=== PATIENT | female | born 1970 | race Hispanic/Latino ===

== ENCOUNTER 2019-10-01 02:52 | Emergency (ER) | payer OTHER ==
[2019-10-01] MEDS ORDERED: MAG HYDROX/AL HYDROX/SIMETH ES 30 ML SUSP UDCUP ONE (03:45)
[2019-10-01] MEDS ORDERED: LIDOCAINE HCL 2% VISCOUS 15 ML UDCUP ONE (03:45)
[2019-10-01] MEDS ORDERED: KETOROLAC TROMETHAMINE 30MG/ML ONE ×2 (03:45→03:46)
[2019-10-01] MEDS ORDERED: IPRATROPIUM/ALBUTEROL SULFATE 3 ML SOLUTION IH ONE (03:53)
[2019-10-01] MEDS ORDERED: AZITHROMYCIN 250 MG TABLET PO ONE (04:19)
[2019-10-01] MEDS ORDERED: DOXYCYCLINE HYCLATE 100 MG TABLET PO ONE (04:34)
== END 2019-10-01 04:58 | disposition home or self-care (01) ==
LOC: EDH 02:52
DX: J20.9 Acute bronchitis, unspecified (principal); R07.89 Other chest pain; M79.10 Myalgia, unspecified site; E11.9 Type 2 diabetes mellitus without complications; E78.5 Hyperlipidemia, unspecified; I10 Essential (primary) hypertension; Z90.49 Acquired absence of other specified parts of digestive tract; Z90.710 Acquired absence of both cervix and uterus; Z88.0 Allergy status to penicillin; Z88.2 Allergy status to sulfonamides; Z88.1 Allergy status to other antibiotic agents
CPT/HCPCS: 71046; 87804 ×2; 94640; 96372; 99284; J1885 ×2

== ENCOUNTER 2025-07-25 15:36 | Inpatient (IN) | payer BC ==
[~2025-07-25] VITALS: Ht 160 cm; Wt 78.3 kg
[~2025-07-25 15:36] MED LIST: FOLI0.8T22 PO; OMEP-420 PO
[2025-07-25 17:12] LABS: IMMATURE GRANULOCYTE ABSOLUTE 0.06 K/uL (0-1); NUCLEATED RED BLOOD CELLS 0.0 % (0.0-0.19); PLATELET COUNT (AUTO) 563 K/uL (130-400); RED BLOOD CELL COUNT(AUTO) 3.60 MIL/uL (4.00-5.50); RED CELL DISTRIBUTION WIDTH 18.6 % (11.0-15.5); WHITE BLOOD COUNT (AUTO) 12.6 K/uL (4.8-10.8)
--- NOTE | 2025-07-25 17:33 | EKG ---
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
[2025-07-25 17:53] LABS: CREATININE 5.6 mg/dL (0.5-1.0); GLOMERULAR FILTR. RATE CALC 8.0 mL/min (>90); GLUCOSE,RANDOM 228.0 mg/dL (70-105); SODIUM SERUM 132.0 mmol/L (136-145); UREA NITROGEN, BLOOD 38.0 mg/dL (7-18)
--- NOTE | 2025-07-25 17:55 | HMCIMG ---
STUDY CT chest without intravenous contrast. HISTORY Rule out abscess. TECHNIQUE Axial CT images of the chest were obtained without intravenous contrast. COMPARISON Chest radiograph dated 01/14/2025. FINDINGS LUNGS Both lungs demonstrate heterogeneous attenuation with a mosaic perfusion pattern. There is associated compressive atelectasis adjacent to a loculated left pleural collection. No discrete pulmonary mass is identified. No yifan cavitary lesion is seen. PLEURAL SPACES A loculated left pleural empyema is present, tracking along the left hemithorax with a maximal thickness of approximately 2.7 cm, exerting mass effect on the adjacent lung with subpleural scarring and compressive atelectasis. No right-sided pleural effusion or pneumothorax is identified. HEART AND GREAT VESSELS Marked cardiomegaly is present. The main pulmonary artery is enlarged, measuring approximately 3.2 cm in diameter, compatible with pulmonary arterial hypertension in the appropriate clinical context. No sizable pericardial effusion is identified on this noncontrast examination. MEDIASTINUM AND LYMPH NODES No pathologically enlarged mediastinal, hilar, or axillary lymph nodes are identified by size criteria. Mediastinal fat planes are preserved. CHEST WALL AND POSTSURGICAL CHANGES There is failure of sternal fixation with rupture of sternal sutures and wide diastasis of the sternal halves. A large intersternal fluid collection occupies the gap between the sternal margins, measuring approximately 4.2 4.3 12.3 cm, compatible with a postoperative intersternal collection, with superinfection not excluded on imaging alone. Omental flap transposition from the epigastrium into the sternal defect is visualized, consistent with prior surgical reconstruction. No definite gas locules are seen within the collection on this noncontrast study. UPPER ABDOMEN The visualized liver is enlarged, measuring approximately 18 cm in craniocaudal extent, compatible with hepatomegaly. Diffuse low attenuation of the hepatic parenchyma is in keeping with hepatic steatosis. The remaining visualized upper abdominal structures are unremarkable on this chest CT technique. BONES Apart from the described sternal dehiscence, no acute displaced rib fracture or aggressive osseous lesion is identified. IMPRESSION * Loculated left pleural empyema measuring up to approximately 2.7 cm in thickness with associated subpleural scarring and compressive atelectasis of adjacent lung parenchyma. * Marked cardiomegaly with enlarged main pulmonary artery measuring 3.2 cm, compatible with pulmonary arterial hypertension in the appropriate clinical setting. * Postoperative sternotomy with failure of sternal fixation and wide diastasis of the sternal halves, with a large intersternal fluid collection measuring approximately 4.2 4.3 12.3 cm occupying the sternal gap; omental flap transposition into the defect is noted, in keeping with prior reconstructive surgery. Imaging appearance is concerning for postoperative intersternal collection; superimposed infection cannot be excluded on this noncontrast study. * Hepatomegaly with diffuse hepatic steatosis in the visualized upper abdomen. /[place]
[2025-07-25] MEDS: VANCOMYCIN 1G/250ML KIT 250 ML IV ONE (18:00)
--- NOTE | 2025-07-25 18:52 | NUR ---
PT HAS A LEFT UPPER ARM FISTULA DIALYSIS M-[id number]
--- NOTE | 2025-07-25 19:50 | HP ---
[facility] Date of Service: Jul 25, 2025 Time of Service: 19:48 PCP: Tk Castillo HISTORY OF PRESENT ILLNESS: This is a 55-year-old Kyrgyz speaking female with past medical history of diabetes type 2, hypertension, hyperlipidemia, coronary artery disease with CABG x2 and end stage renal disease on hemodialysis who presents to the ED for complaints of swelling and tenderness on chest incision site started yesterday.Patient reports she had a CABG x2 on 01/2025 at [facility] [place] and developed complications she said for which she underwent 5 subsequent surgeries post CABG at [facility].Patient reports throbbing pain on the incisional site when coughing which started yesterday and getting worse today so daughter decided to bring her to this facility for evaluation. Seen and examined patient in the ER awake,alert and coherent,appears comfortable.Patient denies palpitation,shortness of breath, fever,chills ,nausea and vomiting.Lates V/S T98.2, heart rate 80, blood pressure 141/87 saturation 98% on room air. Labs: WBC 12 with negative left shift of neutrophils 79, hemoglobin 9, hematocrit 32, platelet count 563. Sodium 132, chloride 96, BUN 38, creatinine 5.6, GFR eight random glucose [address] chest without contrast result revealed loculated left pleural empyema measuring up to approximately 2.7 cm in thickness associated subpleural scarring and compressive atelectasis of adjacent lung parenchyma. Marked cardiomegaly with enlarged main pulmonary artery measuring 3.2 cm compatible with pulmonary arterial hypertension in the appropriate clinical setting. Postoperative sternotomy with failure of sternal fixation and wide diastasis of the sternal halves with a large intersternal fluid collection measuring approximately 0.2 x 4.3 x 12.3 cm occupying the sternal gap, Bentyl flap transposition into the defect is noted in keeping with prior reconstructive surgery. Appearance is concerning for postoperative intersternal collection, superimposed infection can not be excluded on this noncontrast study. Hepatomegaly with diffuse hepatic steatosis in the visualized upper abdomen. REVIEW OF SYSTEMS CONSTITUTIONAL: Denies fevers, chills, or night sweats. No unintentional weight loss reported. NEUROLOGICAL: Denies headache, amaurosis fugax, motor weakness, sensory deficit, vertigo/spinning sensation, gait abnormalities, or tremors. ENT: No hearing loss, otalgia, otorrhea, rhinitis, rhinorrhea, hoarseness, or sore throat. CARDIOVASCULAR: complain of throbbing pain at chest inciional site Denies d yspnea on exertion, orthopnea, paroxysmal nocturnal dyspnea, palpitations, life- threatening arrhythmias, claudication. PULMONARY: Denies any shortness of breath, cough, phlegm/sputum, hemoptysis, pleuritic chest pain. SLEEP: Denies morning headaches, daytime somnolence or napping. Denies difficulty falling asleep, staying asleep, waking from sleep. Denies knowledge of snoring. GASTROINTESTINAL: Denies any type of dysphagia to either liquids or solids. Denies nausea, vomiting, pyrosis, early satiety, abdominal pain, diarrhea, constipation, or changes in stool consistency or caliber. Denies coffee-ground emesis, hematemesis, hematochezia, or melanotic stools. GENITOURINARY: Denies frequency, urgency, nocturia, hematuria or incontinence (Storage/Irritative symptoms.) Low urinary stream, straining to void, urinary intermittency or hesitancy, splitting of the voiding stream, terminal dribbling. ENDOCRINOLOGIC: Denies polyuria, polydipsia, polyphagia or heat/cold intolerances. HEMATOLOGIC: Denies thrombophilia/previous clots, or coagulopathy/bleeding disorders. ONCOLOGIC: Denies personal history of malignancy. DERMATOLOGIC: Denies rashes or pruritus. PSYCHIATRIC: Denies any suicidal or homicidal ideation. Denies hallucinations. PAST MEDICAL HISTORY: [ Diabetes, hypertension, hyperlipidemia, coronary artery disease, end-stage renal disease] PAST SURGICAL HISTORY: [ Lava and CABG x2 ] PAST SOCIAL HISTORY: [ Patient lives with . Patient denies alcohol tobacco and recreational drug use ] FAMILY HISTORY: [Hypertension, diabetes ] And cardiovascular disease Coded Allergies: ciprofloxacin (Verified Allergy, Severe, 01/14/25) Erythromycin Lactobionate (Verified Allergy, Unknown, 01/14/25) Penicillins (Verified Allergy, Unknown, 01/14/25) Sulfa (Sulfonamide Antibiotics) (Verified Allergy, Unknown, 01/14/25) cefaclor (Verified Allergy, Unknown, 01/14/25) codeine (Verified Allergy, Unknown, 01/14/25) PHYSICAL EXAM GENERAL APPEARANCE: The patient is awake, alert, and oriented, in no acute cardiopulmonary distress. NEUROLOGICAL: Cranial nerves II-XII grossly intact. Motor is 5/5 in bilateral upper and lower extremities proximal to distal. No sensory deficits. HEENT: Face is symmetric. Pupils are equal and reactive. Extraocular movements are intact. NECK: Supple. No JVD. No thyromegaly. No submental, submandibular, pre-/p ostauricular, occipital or supraclavicular lymphadenopathy. CHEST: Normal chest expansion. No Telemetry. LUNGS: Absence of any rales, rhonchi or any wheezing. CARDIOVASCULAR: Regular. S1 and S2 normal. No appreciable rubs, murmurs or gallops. ABDOMEN: Soft, nontender, and nondistended. There is no rebound, voluntary guarding, or rigidity. : Deferred. No [place]. EXTREMITIES: Non-edematous and not cyanotic. No clubbing. Good capillary refill. SKIN: No skin breakdown. Vital Sign (Last 24 Hours) 07/25/25 18:01 Temp 98.2 Pulse 80 Resp 16 B/P (MAP) 141/87 Pulse Ox 98 O2 Delivery Room Air* O2 Flow Rate 0 FiO2 21 LABS: Laboratory: Test 07/25/25 16:50 Range/Units White Blood Count 12.6 H 4.8-10.8 K/uL Red Blood Count 3.60 L 4.00-5.50 MIL/uL Hemoglobin 9.7 L 12.0-16.0 g/dL Hematocrit 32.3 L 36-48 % Mean Corpuscular Volume 89.7 79-99 fL Mean Corpuscular Hemoglobin 26.9 L 27.0-33.0 pg Mean Corpuscular Hemoglobin Concent 30.0 L 32.0-36.0 g/dL Red Cell Distribution Width 18.6 H 11.0-15.5 % Platelet Count 563 H 130-400 K/uL Mean Platelet Volume 9.4 7.5-10.5 fL Immature Granulocyte % (Auto) 0.5 0-1 % Neutrophils (%) (Auto) 79.2 H 40.0-77.0 % Lymphocytes (%) (Auto) 10.2 L 21.0-51.0 % Monocytes (%) (Auto) 7.4 3.0-13.0 % Eosinophils (%) (Auto) 1.9 0.0-8.0 % Basophils (%) (Auto) 0.8 0.0-5.0 % Neutrophils # (Auto) 10.0 H 1.8-7.7 K/uL Lymphocytes # (Auto) 1.3 1.0-4.8 K/uL Monocytes # (Auto) 0.9 0.1-1.0 K/uL Eosinophils # (Auto) 0.24 0.00-0.70 K/uL Basophils # (Auto) 0.10 0.00-0.20 K/uL Absolute Immature Granulocyte (auto 0.06 0-1 K/uL Nucleated Red Blood Cells 0.0 0.0-0.19 % Red Blood Cell Morphology See comments Sodium Level 132 L 136-145 mmol/L Potassium Level 4.3 3.5-5.1 mmol/L Chloride Level 96 L 101-111 mmol/L Carbon Dioxide Level 27 21-32 mmol/L Blood Urea Nitrogen 38 H 7-18 mg/dL Creatinine 5.6 H 0.5-1.0 mg/dL Glomerular Filtration Rate Calc 8 >90 mL/min Random Glucose 228 H 70-105 mg/dL Lactic Acid Level 1.5 0.8-2.5 mmol/L Total Calcium 9.3 8.5-10.1 mg/dL DIAGNOSTICS / RADIOLOGY: [ ] ASSESSMENT: Chest wall abscess with recent CABG/ post operative sternotomy with failure sternal fixation with fluid collection per CT POA 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 q.48h for GI prophylaxis We will start on insulin sliding scale AC & HS with hypoglycemia protocol We will add prn medication for fever,pain,cough , nausea and vomiting We will obtain ultrasound of the chest wall We will reconcile home meds once medlist available We will seek cardiovascular consultation We will seek Infectious Disease consultation for antibiotic guidance We will seek pulmonology consultation We will request labs in am Further orders to follow depending on above results Case discussed with attending physician and came up with above treatment and plan of care. ADVANCED CARE PLANNING 1. Which of the following were discussed? Hospice Care - No Therapeutic options - Yes Advance Directives - No Other discussions - 2. Discussed with who? Patient 3. Voluntary nature of this service was explained to the patient? Yes 4. Amount of time spent - __25 min 5. Reviewed by Physician? (if this service was performed by NPP) Yes Patient seen and examined by me. Agree with note by [employer]ER[employer] CONSULTANT AND DESIGNER SEE ADDITIONAL ORDERS PER CHART DISCUSSED WITH NURSING STAFF CHRISTIE HOOKER [facility] Jul 25, 2025 19:50
[2025-07-25] MEDS ORDERED: GLUCAGON 1MG KIT 1 MG ML IM PRN (20:30)
[2025-07-25] MEDS ORDERED: DEXTROSE 50%-WATER 50 ML DISP.SYRIN IV PRN (20:30)
[2025-07-25] MEDS ORDERED: MEROPENEM 1GM 1 GM VIAL IVPB SCH (21:30)
[2025-07-25] MEDS ORDERED: MEROPENEM 500MG 500 MG VIAL IVPB SCH (21:30)
[2025-07-25] MEDS ORDERED: VANCOMYCIN HCL 1.5 GM/250 ML BAG IV ONE (21:30)
[2025-07-25] MEDS ORDERED: RENAL DOSE IV PRN (21:30)
[2025-07-25] MEDS: AZTREONAM 2 GM VIAL IVPB ONE (22:44)
[2025-07-25] MEDS: FAMOTIDINE 20MG TAB PO SCH (22:44)
[2025-07-25] MEDS ORDERED: ASPI-1197 PO (23:30)
[2025-07-25] MEDS ORDERED: GABA-529 PO (23:30)
[2025-07-25] MEDS ORDERED: ATOR40TA69 PO (23:30)
[2025-07-25] MEDS ORDERED: METO5TAB2 PO (23:30)
[2025-07-25] MEDS ORDERED: METO25TA6 PO (23:30)
[2025-07-25] MEDS ORDERED: CLOP75TA32 PO (23:30)
[2025-07-25] MEDS ORDERED: APIX5TAB PO (23:30)
[2025-07-25] MEDS ORDERED: NIFE-40 PO (23:30)
--- NOTE | 2025-07-25 23:59 | ERN ---
ED Note History of Present Illness Stated Complaint: CHEST WALL ABSCESS POST CABG Chief Complaint: Wound Check Time Seen by MD: 15:49 Time Seen by Midlevel: 15:49 Dictation: The patient is a 55-year-old female with a history of ESRD on hemodialysis Wednesdays, diabetes, CAD, hypertension, CABG who presents to the emergency department for a wound evaluation. Patient reports that she noticed that her chest wound was swollen and protruding. Patient reports she just noticed it yesterday. She reports that she had a graft done sometime in June. Patient was previously admitted here in January for a breast abscess wh ich was drained on the 01/16. Patient denies any fevers. Allergies: Coded Allergies: ciprofloxacin (Verified Allergy, Severe, 01/14/25) Erythromycin Lactobionate (Verified Allergy, Unknown, 01/14/25) Penicillins (Verified Allergy, Unknown, 01/14/25) Sulfa (Sulfonamide Antibiotics) (Verified Allergy, Unknown, 01/14/25) cefaclor (Verified Allergy, Unknown, 01/14/25) codeine (Verified Allergy, Unknown, 01/14/25) Home Meds Reported Medications Clopidogrel Bisulfate (Clopidogrel) 75 Mg Tablet, 1 TAB PO DAILY for 30 Days, #30 TAB 0 Refills 07/25/25 Aspirin (Aspirin) 81 Mg Tab.chew, 1 TAB PO DAILY for 30 Days, #30 TAB 0 Refills 07/25/25 Atorvastatin Calcium (LIPITOR) 40 Mg Tablet, 1 TAB PO HS for 30 Days, #30 TAB 0 Refills 07/25/25 Gabapentin (Gabapentin) 100 Mg Capsule, 100 MG PO TID for every other day after dialysis, CAP 07/25/25 Metoclopramide HCl (Metoclopramide HCl) 5 Mg Tablet, 1 TAB PO TID for 30 Days, #90 TAB 0 Refills 07/25/25 Apixaban (Eliquis) 5 Mg Tablet, 1 TAB PO BID for 30 Days, #60 TAB 0 Refills 07/25/25 Nifedipine (Nifedipine ER) 30 Mg Tab.er.24, 1 TAB PO DAILY for 30 Days, #30 TAB 0 Refills 07/25/25 Metoprolol Tartrate (Metoprolol Tartrate) 25 Mg Tablet, 0.5 TAB PO BID for 30 Days, #60 TAB 0 Refills 07/25/25 Omeprazole (Omeprazole) 20 Mg Tab.rap.dr, 1 TAB PO DAILY for 30 Days, #30 TAB 0 Refills 01/14/25 Folic Acid/Vitamin B Comp W-C (Ana-Mike Tablet) 0.8 Mg Tablet, 1 TAB PO DAILY for 30 Days, #30 TAB 0 Refills 01/14/25 Past Medical History Past Medical History: Diabetes-Type II, High Cholesterol, Heart Disease, Hypertension, Renal Disese, Renal Failure Surgical History: Hysterectomy, CABG, Other, LAVA Surgical History Other: RT EYE SX, CATARACTS History: Not Applicable RN Note Reviewed/Agreed w/PFSH: Yes Review of System Dictation Constitutional: Negative for fever,chills, and weight loss Eyes: Negative for injury, pain,redness, and discharge ENT: Negative for injury,pain or swelling Cardiovascular: Negative for chest pain, palpitations, and edema Respiratory: Negative for shortness of breath, cough, and wheezing, Abdomen/GI: Negative for abdominal pain, nausea, vomiting, diarrhea, and constipation Back: Negative for injury and pain : Negative for injury, bleeding and discharge MS/Extremity: Negative for injury and deformity Skin: positive for swelling to chest Neuro: Negative for headache, weakness, numbness, tingling, and seizure Psych: Negative for suicide ideation, homicidal ideation, and hallucinations Initial Vital Sign VS Vital Signs Date Time Temp Pulse Resp B/P (MAP) Pulse Ox O2 Delivery O2 Flow Rate FiO2 07/25/25 15:39 98.2 85 16 144/88 98 Room Air 0 07/25/25 18:01 21 Physical Exam Dictation Vital Signs reviewed General Appearance: Alert, oriented x 3, no acute distress, well developed, nourished. Head and Face: non-traumatic. Eyes: PERRL, pink conjunctivas, eyelid no trauma, anterior chamber with arcus senilis. Ears: Pinnas intact and no signs of trauma or erythema ear canals clear and no discharge TM no erythema Nose: No discharge, no bleeding. Oropharynx: Mouth normal, tongue pink. pharynx clear,no erythema, tonsils no exudates, no abscesses noted, mucous membrane moist Neck: Supple, non-tender, no thyromegaly, no masses, no JVD, no bruits Breast:Deferred Chest:No tenderness, no crepitus, no paradoxical movement, no retractions Lungs:Clear, well-ventilated, symmetric, no rales, no wheezing, no rhonchi, no stridor, good breath sounds bilaterally Heart: Regular rate, regular rhythm, no murmur, no gallops Vascular: no peripheral edema, Abdomen: Soft, positive bowel sounds, nondistended, no guarding, nontender, no rebound, no masses no hepatomegaly, no splenomegaly, no Acosta's sign, no hernias. Rectal: Deferred Genital: Deferred Neurological: Normal speech, motor function intact, sensory function intact Musculoskeletal: Neck nontender, full range of motion, back nontender, full range of motion, Extremities: nontender, full range of motion Skin: Color pink, dry, no turgor, no rash, no lacerations, no abrasions, no contusions. Incision site noted to sternum. No significant erythema or drainage. There is some edema at the epigastric region Lymphatic: Deferred Results (Laboratory/Radiology) Laboratory/Radiology Laboratory Tests Test 07/25/25 16:50 White Blood Count 12.6 K/uL (4.8-10.8) H Red Blood Count 3.60 MIL/uL (4.00-5.50) L Hemoglobin 9.7 g/dL (12.0-16.0) L Hematocrit 32.3 % (36-48) L Mean Corpuscular Volume 89.7 fL (79-99) Mean Corpuscular Hemoglobin 26.9 pg (27.0-33.0) L Mean Corpuscular Hemoglobin Concent 30.0 g/dL (32.0-36.0) L Red Cell Distribution Width 18.6 % (11.0-15.5) H Platelet Count 563 K/uL (130-400) H Mean Platelet Volume 9.4 fL (7.5-10.5) Immature Granulocyte % (Auto) 0.5 % (0-1) Neutrophils (%) (Auto) 79.2 % (40.0-77.0) H Lymphocytes (%) (Auto) 10.2 % (21.0-51.0) L Monocytes (%) (Auto) 7.4 % (3.0-13.0) Eosinophils (%) (Auto) 1.9 % (0.0-8.0) Basophils (%) (Auto) 0.8 % (0.0-5.0) Neutrophils # (Auto) 10.0 K/uL (1.8-7.7) H Lymphocytes # (Auto) 1.3 K/uL (1.0-4.8) Monocytes # (Auto) 0.9 K/uL (0.1-1.0) Eosinophils # (Auto) 0.24 K/uL (0.00-0.70) Basophils # (Auto) 0.10 K/uL (0.00-0.20) Absolute Immature Granulocyte (auto 0.06 K/uL (0-1) Nucleated Red Blood Cells 0.0 % (0.0-0.19) Red Blood Cell Morphology See comments Sodium Level 132 mmol/L (136-145) L Potassium Level 4.3 mmol/L (3.5-5.1) Chloride Level 96 mmol/L (101-111) L Carbon Dioxide Level 27 mmol/L (21-32) Blood Urea Nitrogen 38 mg/dL (7-18) H Creatinine 5.6 mg/dL (0.5-1.0) H Glomerular Filtration Rate Calc 8 mL/min (>90) Random Glucose 228 mg/dL (70-105) H Lactic Acid Level 1.5 mmol/L (0.8-2.5) Total Calcium 9.3 mg/dL (8.5-10.1) REASON: r/o abscess ORDERING PHYSICIAN: MALISSA IBRAHIM PROCEDURE: CHEST WO - CT CHEST W/O CONTRAST STUDY CT chest without intravenous contrast. HISTORY Rule out abscess. TECHNIQUE Axial CT images of the chest were obtained without intravenous contrast. COMPARISON Chest radiograph dated 01/14/2025. FINDINGS LUNGS Both lungs demonstrate heterogeneous attenuation with a mosaic perfusion pattern. There is associated compressive atelectasis adjacent to a loculated left pleural collection. No discrete pulmonary mass is identified. No yifan cavitary lesion is seen. PLEURAL SPACES A loculated left pleural empyema is present, tracking along the left hemithorax with a maximal thickness of approximately 2.7 cm, exerting mass effect on the adjacent lung with subpleural scarring and compressive atelectasis. No right-sided pleural effusion or pneumothorax is identified. HEART AND GREAT VESSELS Marked cardiomegaly is present. The main pulmonary artery is enlarged, measuring approximately 3.2 cm in diameter, compatible with pulmonary arterial hypertension in the appropriate clinical context. No sizable pericardial effusion is identified on this noncontrast examination. MEDIASTINUM AND LYMPH NODES No pathologically enlarged mediastinal, hilar, or axillary lymph nodes are identified by size criteria. Mediastinal fat planes are preserved. CHEST WALL AND POSTSURGICAL CHANGES There is failure of sternal fixation with rupture of sternal sutures and wide diastasis of the sternal halves. A large intersternal fluid collection occupies the gap between the sternal margins, measuring approximately 4.2 4.3 12.3 cm, compatible with a postoperative intersternal collection, with superinfection not excluded on imaging alone. Omental flap transposition from the epigastrium into the sternal defect is visualized, consistent with prior surgical reconstruction. No definite gas locules are seen within the collection on this noncontrast study. UPPER ABDOMEN The visualized liver is enlarged, measuring approximately 18 cm in craniocaudal extent, compatible with hepatomegaly. Diffuse low attenuation of the hepatic parenchyma is in keeping with hepatic steatosis. The remaining visualized upper abdominal structures are unremarkable on this chest CT technique. BONES Apart from the described sternal dehiscence, no acute displaced rib fracture or aggressive osseous lesion is identified. IMPRESSION * Loculated left pleural empyema measuring up to approximately 2.7 cm in thickness with associated subpleural scarring and compressive atelectasis of adjacent lung parenchyma. * Marked cardiomegaly with enlarged main pulmonary artery measuring 3.2 cm, compatible with pulmonary arterial hypertension in the appropriate clinical setting. * Postoperative sternotomy with failure of sternal fixation and wide diastasis of the sternal halves, with a large intersternal fluid collection measuring approximately 4.2 4.3 12.3 cm occupying the sternal gap; omental flap transposition into the defect is noted, in keeping with prior reconstructive surgery. Imaging appearance is concerning for postoperative intersternal collection; superimposed infection cannot be excluded on this noncontrast study. * Hepatomegaly with diffuse hepatic steatosis in the visualized upper abdomen. /[facility] Labs Reviewed?: Yes EKG: (+) rhythm (Sinus rhythm) EKG Comment: Date:07/25/25 Time:1727 Ventricular rate:87 IA interval:127 QRS duration:79 QT/QTc:354/427 EKG interpretation: Sinus rhythm Reviewed by ED Attending no STEMI ED Course ED Course Orders Procedure Category Date Status Time Cbc With Differential LAB 07/25/25 Complete 16:08 12 Lead Ekg Tracing- EKG 07/25/25 Resulted Technical 16:08 Basic Metabolic Panel LAB 07/25/25 Complete 16:08 Blood Cult MIRANDA 07/25/25 In Process 16:08 Lactic Acid LAB 07/25/25 Complete 16:08 Ct Chest W/O Contrast CT 07/25/25 Resulted 16:08 Vancomycin 1g/250ml PHA 07/25/25 Complete Kit (Vancomycin 1g/2 18:00 Edm Admit Bridge Order ADM 07/25/25 Transmitted 18:25 Vital Signs(Adult CPOE 07/25/25 Transmitted Hospitalist) 20:08 Nurse To Enter Home CPOE 07/25/25 Transmitted Medication 20:08 Admit Orders ADM 07/25/25 Transmitted 20:08 Initiate SEMAJ 07/25/25 In Process Hyperglycemia Protoco 20:08 Insulin Regular, PHA 07/25/25 In Process Human 3ml (Humulin R 21:00 Initiate Hypoglycemia SEMAJ 07/25/25 In Process Protocol 20:08 Dextrose 50%-Water PHA 07/25/25 In Process (D50w) 20:30 Glucagon 1mg Kit PHA 07/25/25 In Process (Glucagon 1mg Kit) 20:30 Infectious Disease CONPHYSVC 07/25/25 Transmitted Consult 20:08 Cardiovascular Consult CONPHYSVC 07/25/25 Transmitted 20:08 Cbc With Differential LAB 07/26/25 In Process 04:00 Comprehensive LAB 07/26/25 In Process Metabolic Panel 04:00 Magnesium LAB 07/26/25 In Process 04:00 Lactic Acid LAB 07/26/25 In Process 04:00 Troponin I High LAB 07/26/25 In Process Sensitivity 04:00 Nephrology Consult CONPHYSVC 07/25/25 Transmitted 20:08 Renal Dialysis Diet DIET 07/26/25 Transmitted Breakfast Famotidine 20mg Tab PHA 07/25/25 In Process (Pepcid 20mg Tab) 21:00 Pharmacy To Renal PHA 07/25/25 Complete Dose (Renal Dose) 21:30 Us Soft Tissue Chest US 07/25/25 Taken Wall 21:04 Vancomycin 1.5 Gm/250 PHA 07/25/25 Complete Ml Bag (Vancomycin 21:30 Meropenem 1gm (Merrem PHA 07/25/25 Complete 1gm) 21:30 Meropenem 500mg PHA 07/25/25 Complete (Merrem 500mg) 21:30 Aztreonam (Azactam) PHA 07/25/25 Complete 22:30 Aztreonam (Azactam) PHA 07/26/25 In Process 06:00 Current Medications Medications (Trade) Dose Ordered Sig/Ryan Route PRN Reason Start Time Stop Time Status Last Admin Dose Admin Vancomycin HCl 250 ml @ 125 mls/hr ONCE ONCE IV 07/25/25 18:00 07/25/25 19:59 DC Vital Signs Date Time Temp Pulse Resp B/P (MAP) Pulse Ox O2 Delivery O2 Flow Rate FiO2 07/25/25 23:46 84 16 156/84 95 Room Air* 0 21 07/25/25 18:01 98.2 80 16 141/87 98 Room Air* 0 07/25/25 15:39 98.2 85 16 144/88 98 Room Air 0 Medical Decision Making MDM MDM: The patient is a 55-year-old female with a history of ESRD on hemodialysis Wednesdays, diabetes, CAD, hypertension, CABG who presents to the emergency department for a wound evaluation. Patient reports that she noticed that her chest wound was swollen and protruding. Patient reports she just noticed it yesterday. She reports that she had a graft done sometime in June. Patient was previously admitted here in January for a breast abscess which was drained on the 01/16. Patient denies any fevers.\ CBC showed mild leukocytosis, mild normocytic anemia, chemistry showed slightly elevated hyperglycemia, lactic acid of 1.8. CT scan chest showed a large intro sternal fluid collection. Patient will be admitted for further evaluation and treatment. Differential diagnosis: Cellulitis, abscess, sepsis, pneumonia Comorbidities: ESRD on dialysis, diabetes, CAD, hypertension Tests considered and not ordered secondary to shared decision making include: none Previous outside records reviewed: none Risk of complication and/or morbidity or mortality of patient management: The patient meets criteria for admission. Need for emergency major/minor surgery: No There are no social concerns with this patient. I independently interpreted the tests I ordered (labs, urinalysis, etc.). I discussed the case with the hospitalist for admission. [facility] who accepts admission I discussed the case with the following specialists: none. Historian: pateint. I independently interpreted imaging studies and EKGs that I ordered (US, CT, XR, EKG, etc.). External chart review: none. Medical management and examination interpretation discussions were had by me with other qualified healthcare professionals as indicated for the patient's care. DX & DISP Disposition: Inpatient Decision to Admit Date: Jul 25, 2025 Decision to Admit Time: 18:25 Departure Impression: Primary Impression: Abscess of chest wall Additional Impressions: Anemia, chronic renal failure, ESRD (end stage renal disease) on dialysis, Leukocytosis Condition: Stable Referrals: RAYRAY MADRIGAL MD (PCP) I have reviewed the case, and I agree with, Diagnosis and Plan MALISSA IBRAHIM [facility] Jul 25, 2025 23:59
[2025-07-26] VITALS (21 sets, daily range): BP systolic 142–180; BP diastolic 58–87; PULSE 80–95; RESP 15–20; TEMP 97.5–99; O2SAT 97
[2025-07-26 06:07] LABS: IMMATURE GRANULOCYTE ABSOLUTE 0.06 K/uL (0-1); NUCLEATED RED BLOOD CELLS 0.0 % (0.0-0.19); PLATELET COUNT (AUTO) 518 K/uL (130-400); RED BLOOD CELL COUNT(AUTO) 3.37 MIL/uL (4.00-5.50); RED CELL DISTRIBUTION WIDTH 18.6 % (11.0-15.5); WHITE BLOOD COUNT (AUTO) 11.9 K/uL (4.8-10.8)
--- NOTE | 2025-07-26 06:09 | HMCIMG ---
*:first-child]:mt-0"> STUDY US Soft Tissue Chest Wall CLINICAL HISTORY Chest wall swelling with concern for abscess in a patient with prior sternotomy and known loculated left pleural empyema and sternal gap fluid collection on CT TECHNIQUE Real-time ultrasound of the anterior chest wall centered over the midline sternotomy region COMPARISON Prior CT chest report describing loculated left pleural empyema approximately 2.7 cm in thickness and a large interstitial fluid collection in the sternal gap measuring approximately 4.2 x 4.2 x 12.3 cm FINDINGS Targeted ultrasound of the midline anterior chest wall over the sternotomy site demonstrates fluid collections located between the sternal halves within the sternal gap. The larger discrete loculated collection measures approximately 1.7 x 1.6 x 2.2 cm and an additional adjacent collection measures approximately 1.9 x 0.7 x 2.1 cm. These collections are predominantly anechoic to hypoechoic with features compatible with localized fluid rather than solid tissue, in keeping with the previously described sternal gap fluid on CT. There is associated soft tissue edema and thickening overlying the incision site along the midline anterior chest wall. No definite intrapleural extension is visualized on this limited chest wall study. No separate superficial subcutaneous drainable fluid pocket distinct from the sternal gap collections is identified. IMPRESSION * Localized fluid collections within the sternal gap between the sternal halves at the midline anterior chest wall, measuring approximately 1.7 x 1.6 x 2.2 cm and 1.9 x 0.7 x 2.1 cm, corresponding to and smaller than the previously reported larger interstitial fluid collection in the sternal gap on CT, and compatible with postoperative fluid or organizing collection in the context of suspected chest wall infection. * Overlying soft tissue edema along the sternotomy incision without a clearly separate superficial drainable abscess pocket identified on this targeted ultrasound. * No pleural or pericardial effusion demonstrated on this chest wall ultrasound study. /Capac
[2025-07-26 06:22] LABS: ASPARTATE AMINOTRANSFERASE 15.0 U/L (10-37); CREATININE 6.3 mg/dL (0.5-1.0); GLOMERULAR FILTR. RATE CALC 7.0 mL/min (>90); GLUCOSE,RANDOM 225.0 mg/dL (70-105); SODIUM SERUM 132.0 mmol/L (136-145); TOTAL PROTEIN, SERUM 7.5 g/dL (6.0-8.3); UREA NITROGEN, BLOOD 46.0 mg/dL (7-18)
--- NOTE | 2025-07-26 07:47 | NUR ---
REPORT GIVEN TO MARQUEZ AT THIS TIME.
[2025-07-26] MEDS: 0.9%NACL 1000ML 1,000 ML IV SCH (11:02)
--- NOTE | 2025-07-26 12:43 | PN ---
[facility] PROGRESS NOTE Date of Service: Jul 26, 2025 Time of Service: 12:43 SUBJECTIVE: This is a 55-year-old Wallisian speaking female with past medical history of diabetes type 2, hypertension, hyperlipidemia, coronary artery disease with CABG x2 and end stage renal disease on hemodialysis who presents to the ED for complaints of swelling and tenderness on chest incision site started ye sterday.Patient reports she [place] [facility] [place] developed complications she said for which she underwent 5 subsequent surgeries post CABG at [facility] [place].Patient reports throbbing pain on the incisional site when coughing which started yesterday and getting worse today so daughter decided to bring her to this facility for evaluation. Seen and examined patient in the ER awake,alert and coherent,appears comfortable.Patient denies palpitation,shortness of breath, fever,chills ,nausea and vomiting.Lates V/S T98.2, heart rate 80, blood pressure 141/87 saturation 98% on room air. Labs: WBC 12 with negative left shift of neutrophils 79, hemoglobin 9, hematocrit 32, platelet count 563. Sodium 132, chloride 96, BUN 38, creatinine 5.6, GFR eight random glucose [address] chest without contrast result revealed loculated left pleural empyema measuring up to approximately 2.7 cm in thickness associated subpleural scarring and compressive atelectasis of adjacent lung parenchyma. Marked cardiomegaly with enlarged main pulmonary artery measuring 3.2 cm compatible with pulmonary arterial hypertens ion in the appropriate clinical setting. Postoperative sternotomy with failure of sternal fixation and wide diastasis of the sternal halves with a large intersternal fluid collection measuring approximately 0.2 x 4.3 x 12.3 cm occupying the sternal gap, Bentyl flap transposition into the defect is noted in keeping with prior reconstructive surgery. Appearance is concerning for po stoperative intersternal collection, superimposed infection can not be excluded on this noncontrast study. Hepatomegaly with diffuse hepatic steatosis in the visualized upper abdomen. 07/26/2025: Patient was seen and evaluated bedside in ED room 3. She is awake, alert, and oriented x3. Patient denied any significant complaints today. She inquired about her diagnosis and was informed that imaging shows a chest wall fluid collection consistent with a chest wall abscess which does not appear drainable at this time as per radiology. Given concern for her post CABG chest wall abscess, Infectious diseases and Cardiothoracic surgery have been consulted for further evaluation and management recommendations. Vitals signs are notable for hypertension with a blood pressure of 176/82. She will be getting dialyzed today. Patient is afebrile, heart rate in the 80s, respiratory rate stable, and oxygen saturation 97% on room air. Patient remains clinically stable. The plan is to continue monitoring and follow recommendations from Infectious diseases and Cardiothoracic surgery. REVIEW OF SYSTEMS CONSTITUTIONAL: Denies fevers, chills, or night sweats. No unintentional weight loss reported. NEUROLOGICAL: Denies headache, amaurosis fugax, motor weakness, sensory deficit, vertigo/spinning sensation, gait abnormalities, or tremors. ENT: No hearing loss, otalgia, otorrhea, rhinitis, rhinorrhea, hoarseness, or sore throat. CARDIOVASCULAR: Denies dyspnea on exertion, orthopnea, paroxysmal nocturnal dyspnea, palpitations, life-threatening arrhythmias, claudication. PULMONARY: Denies any shortness of breath, cough, phlegm/sputum, hemoptysis, pleuritic chest pain. SLEEP: Denies morning headaches, daytime somnolence or napping. Denies difficulty falling asleep, staying asleep, waking from sleep. Denies knowledge of snoring. GASTROINTESTINAL: Denies any type of dysphagia to either liquids or solids. Denies nausea, vomiting, pyrosis, early satiety, abdominal pain, diarrhea, constipation, or changes in stool consistency or caliber. Denies coffee-ground emesis, hematemesis, hematochezia, or melanotic stools. GENITOURINARY: Denies frequency, urgency, nocturia, hematuria or incontinence (Storage/Irritative symptoms.) Low urinary stream, straining to void, urinary intermittency or hesitancy, splitting of the voiding stream, terminal dribbling. ENDOCRINOLOGIC: Denies polyuria, polydipsia, polyphagia or heat/cold intolerances. HEMATOLOGIC: Denies thrombophilia/previous clots, or coagulopathy/bleeding disorders. ONCOLOGIC: Denies personal history of malignancy. DERMATOLOGIC: Denies rashes or pruritus. PSYCHIATRIC: Denies any suicidal or homicidal ideation. Denies hallucinations. PHYSICAL EXAM GENERAL APPEARANCE: The patient is awake, alert, and oriented, in no acute cardiopulmonary distress. NEUROLOGICAL: Cranial nerves II-XII grossly intact. Motor is 5/5 in bilateral upper and lower extremities proximal to distal. No sensory deficits. HEENT: Face is symmetric. Pupils are equal and reactive. Extraocular movements are intact. NECK: Supple. No JVD. No thyromegaly. No submental, submandibular, pre-/postauricular, occipital or supraclavicular lymphadenopathy. CHEST: Normal chest expansion. No Telemetry. LUNGS: Absence of any rales, rhonchi or any wheezing. CARDIOVASCULAR: Regular. S1 and S2 normal. No appreciable rubs, murmurs or gallops. ABDOMEN: Soft, nontender, and nondistended. There is no rebound, voluntary guarding, or rigidity. : Deferred. No Edouard. EXTREMITIES: Non-edematous and not cyanotic. No clubbing. Good capillary refill. SKIN: No skin breakdown. Vital Signs (last 8hr) Date Time Temp Pulse Resp B/P (MAP) Pulse Ox O2 Delivery O2 Flow Rate FiO2 07/26/25 12:00 97.5 95 18 160/83 98 Room Air 07/26/25 10:00 99.0 85 18 173/78 96 Room Air 07/26/25 08:00 97.5 82 15 157/74 95 Room Air 07/26/25 06:07 78 16 144/69 94 Room Air* 0 21 LABS: Laboratory: Test 07/26/25 11:50 07/26/25 05:51 07/25/25 16:50 Range/Units Whole Blood Glucose 192 H 70-110 MG/DL White Blood Count 11.9 H 4.8-10.8 K/uL Red Blood Count 3.37 L 4.00-5.50 MIL/uL Hemoglobin 9.2 L 12.0-16.0 g/dL Hematocrit 30.0 L 36-48 % Mean Corpuscular Volume 89.0 79-99 fL Mean Corpuscular Hemoglobin 27.3 27.0-33.0 pg Mean Corpuscular Hemoglobin Concent 30.7 L 32.0-36.0 g/dL Red Cell Distribution Width 18.6 H 11.0-15.5 % Platelet Count 518 H 130-400 K/uL Mean Platelet Volume 9.3 7.5-10.5 fL Immature Granulocyte % (Auto) 0.5 0-1 % Neutrophils (%) (Auto) 74.7 40.0-77.0 % Lymphocytes (%) (Auto) 13.4 L 21.0-51.0 % Monocytes (%) (Auto) 7.9 3.0-13.0 % Eosinophils (%) (Auto) 2.9 0.0-8.0 % Basophils (%) (Auto) 0.6 0.0-5.0 % Neutrophils # (Auto) 8.9 H 1.8-7.7 K/uL Lymphocytes # (Auto) 1.6 1.0-4.8 K/uL Monocytes # (Auto) 0.9 0.1-1.0 K/uL Eosinophils # (Auto) 0.35 0.00-0.70 K/uL Basophils # (Auto) 0.07 0.00-0.20 K/uL Absolute Immature Granulocyte (auto 0.06 0-1 K/uL Nucleated Red Blood Cells 0.0 0.0-0.19 % Sodium Level 132 L 136-145 mmol/L Potassium Level 4.3 3.5-5.1 mmol/L Chloride Level 95 L 101-111 mmol/L Carbon Dioxide Level 27 21-32 mmol/L Blood Urea Nitrogen 46 H 7-18 mg/dL Creatinine 6.3 H 0.5-1.0 mg/dL Glomerular Filtration Rate Calc 7 >90 mL/min Random Glucose 225 H 70-105 mg/dL Lactic Acid Level 1.5 0.8-2.5 mmol/L Total Calcium 8.8 8.5-10.1 mg/dL Magnesium Level 2.20 1.80-2.40 mg/dL Total Bilirubin 0.4 0.2-1.0 mg/dL Aspartate Amino Transf (AST/SGOT) 15 10-37 U/L Alanine Aminotransferase (ALT/SGPT) 18 12-78 U/L Alkaline Phosphatase 321 H 50-136 U/L Troponin I High Sensitivity 15 4-50 ng/L Total Protein 7.5 6.0-8.3 g/dL Albumin 3.3 L 3.5-5.0 g/dL Red Blood Cell Morphology See comments Current Medications Medications (Trade) Dose Ordered Sig/Ryan Route PRN Reason Start Time Stop Time Status Last Admin Dose Admin Aztreonam 0.5 gm/ Sodium Chloride 50 ml @ 100 mls/hr Q8H IVPB 07/26/25 06:00 08/05/25 05:59 07/26/25 05:50 100 MLS/HR Dextrose (D50w) 50 ml AD PRN IV HYPOGLYCEMIA PROTOCOL 07/25/25 20:30 08/24/25 20:29 Epoetin Carl-epbx (Retacrit) 10,000 unit QMOWEFR[DIALYSIS] SQ 07/26/25 16:00 08/25/25 15:59 Famotidine (Pepcid 20mg Tab) 20 mg Q48H PO 07/25/25 21:00 08/24/25 20:59 07/25/25 22:44 20 MG Glucagon (Glucagon 1mg Kit) 1 mg AD PRN IM HYPOGLYCEMIA PROTOCOL 07/25/25 20:30 08/24/25 20:29 Insulin Human Regular (humuLIN R 100 UNIT/ML 3ML) INSULIN SLIDING SCAL... ACHS SQ 07/25/25 21:00 08/24/25 20:59 07/26/25 12:09 2 UNIT Meropenem (Merrem 1gm) 1 gm Q8H IVPB 07/25/25 21:30 07/25/25 21:14 DC Meropenem (Merrem 500mg) 500 mg Q24H IVPB 07/25/25 21:30 07/25/25 22:02 DC Ondansetron HCl (zoFRAN 4MG INJ) 4 mg Q6H PRN IVP NAUSEA/VOMITING 07/26/25 06:00 08/25/25 05:59 07/26/25 05:49 4 MG Sodium Chloride 1,000 ml @ 0 mls/hr ONCE IV 07/26/25 11:00 08/25/25 10:59 07/26/25 11:02 100 MLS/HR DIAGNOSTICS / RADIOLOGY: [place] [address] [place], [place] [id number] IMAGING REPORT Signed PATIENT: LEXIS CAMARILLO MR#: [id number] : 1970 SEX: F AGE: 55 LOCATION: [facility] ORDER 1610 STATUS: REG ER REPORT#: [id number] SERVICE 1608 REASON: r/o abscess ORDERING PHYSICIAN: MALISSA IBRAHIM MOBILE APPLICATION TESTER PROCEDURE: CHEST WO - CT CHEST W/O CONTRAST STUDY CT chest without intravenous contrast. HISTORY Rule out abscess. TECHNIQUE Axial CT images of the chest were obtained without intravenous contrast. COMPARISON Chest radiograph dated 01/14/2025. FINDINGS LUNGS Both lungs demonstrate heterogeneous attenuation with a mosaic perfusion pattern. There is associated compressive atelectasis adjacent to a loculated left pleural collection. No discrete pulmonary mass is identified. No yifan cavitary lesion is seen. PLEURAL SPACES A loculated left pleural empyema is present, tracking along the left hemithorax with a maximal thickness of approximately 2.7 cm, exerting mass effect on the adjacent lung with subpleural scarring and compressive atelectasis. No right-sided pleural effusion or pneumothorax is identified. HEART AND GREAT VESSELS Marked cardiomegaly is present. The main pulmonary artery is enlarged, measuring approximately 3.2 cm in diameter, compatible with pulmonary arterial hypertension in the appropriate clinical context. No sizable pericardial effusion is identified on this noncontrast examination. MEDIASTINUM AND LYMPH NODES No pathologically enlarged mediastinal, hilar, or axillary lymph nodes are identified by size criteria. Mediastinal fat planes are preserved. CHEST WALL AND POSTSURGICAL CHANGES There is failure of sternal fixation with rupture of sternal sutures and wide diastasis of the sternal halves. A large intersternal fluid collection occupies the gap between the sternal margins, measuring approximately 4.2 4.3 12.3 cm, compatible with a postoperative intersternal collection, with superinfection not excluded on imaging alone. Omental flap transposition from the epigastrium into the sternal defect is visualized, consistent with prior surgical reconstruction. No definite gas locules are seen within the collection on this noncontrast study. UPPER ABDOMEN The visualized liver is enlarged, measuring approximately 18 cm in craniocaudal extent, compatible with hepatomegaly. Diffuse low attenuation of the hepatic parenchyma is in keeping with hepatic steatosis. The remaining visualized upper abdominal structures are unremarkable on this chest CT technique. BONES Apart from the described sternal dehiscence, no acute displaced rib fracture or aggressive osseous lesion is identified. IMPRESSION * Loculated left pleural empyema measuring up to approximately 2.7 cm in thickness with associated subpleural scarring and compressive atelectasis of adjacent lung parenchyma. * Marked cardiomegaly with enlarged main pulmonary artery measuring 3.2 cm, compatible with pulmonary arterial hypertension in the appropriate clinical setting. * Postoperative sternotomy with failure of sternal fixation and wide diastasis of the sternal halves, with a large intersternal fluid collection measuring approximately 4.2 4.3 12.3 cm occupying the sternal gap; omental flap transposition into the defect is noted, in keeping with prior reconstructive surgery. Imaging appearance is concerning for postoperative intersternal collection; superimposed infection cannot be excluded on this noncontrast study. * Hepatomegaly with diffuse hepatic steatosis in the visualized upper abdomen. /[place] DICTATED BY: ANGELO SPICER MD DATE: 07/25/251854 ELECTRONICALLY SIGNED BY: ANGELO SPICER MD DATE: 07/25/251854 [address] [address] IMAGING REPORT Signed PATIENT: LEXIS CAMARILLO MR#: [id number] : 1970 SEX: F AGE: 55 LOCATION: [facility] ORDER 07 STATUS: ADM IN REPORT#: [id number] SERVICE 03 REASON: chest wall abscess ORDERING PHYSICIAN: CHRISTIE HOOKER MOBILE APPLICATION TESTER PROCEDURE: SOFT CHEST - US SOFT TISSUE CHEST WALL *:first-child]:mt-0"> STUDY US Soft Tissue Chest Wall CLINICAL HISTORY Chest wall swelling with concern for abscess in a patient with prior sternotomy and known loculated left pleural empyema and sternal gap fluid collection on CT TECHNIQUE Real-time ultrasound of the anterior chest wall centered over the midline sternotomy region COMPARISON Prior CT chest report describing loculated left pleural empyema approximately 2.7 cm in thickness and a large interstitial fluid collection in the sternal gap measuring approximately 4.2 x 4.2 x 12.3 cm FINDINGS Targeted ultrasound of the midline anterior chest wall over the sternotomy site demonstrates fluid collections located between the sternal halves within the sternal gap. The larger discrete loculated collection measures approximately 1.7 x 1.6 x 2.2 cm and an additional adjacent collection measures approximately 1.9 x 0.7 x 2.1 cm. These collections are predominantly anechoic to hypoechoic with features compatible with localized fluid rather than solid tissue, in keeping with the previously described sternal gap fluid on CT. There is associated soft tissue edema and thickening overlying the incision site along the midline anterior chest wall. No definite intrapleural extension is visualized on this limited chest wall study. No separate superficial subcutaneous drainable fluid pocket distinct from the sternal gap collections is identified. IMPRESSION * Localized fluid collections within the sternal gap between the sternal halves at the midline anterior chest wall, measuring approximately 1.7 x 1.6 x 2.2 cm and 1.9 x 0.7 x 2.1 cm, corresponding to and smaller than the previously reported larger interstitial fluid collection in the sternal gap on CT, and compatible with postoperative fluid or organizing collection in the context of suspected chest wall infection. * Overlying soft tissue edema along the sternotomy incision without a clearly separate superficial drainable abscess pocket identified on this targeted ultrasound. * No pleural or pericardial effusion demonstrated on this chest wall ultrasound study. 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 * Follow up chest ultrasound (07/25/2025) demonstrated localized fluid collections within the sternal gap between the sternal halves at the midline anterior chest wall, measuring 1.7 x 1.6 x 2.2 And 1.9 x 0.7 x 2.1 cm. * Wound cultures from previous visit did not grow any organism. * Aerobic and anaerobic cultures will be done from the wound, follow up. * Cardiothoracic surgery and Infectious diseases consulted, pending recommendations. * Continue aztreonam (day 1). * We will order CRP and follow up. * Continue to monitor clinically and with serial labs. End-stage renal disease dependent on hemodialysis: * Patient has a end-stage renal disease with hemodialysis scheduled on Saturday. * Nephrology consulted, pending recommendations. * Patient received her dialysis today as scheduled (predialysis creatinine at 6.3). * I&O: -7600 ml (HD fluid) today. Anemia, POA: * Patient's hemoglobin on admission at 9.7, and 9.2 today. * Suspected due to history of end-stage renal disease. * We will order an iron panel to further evaluate and classify, follow up with the result. * Continue erythropoietin with dialysis. * Transfuse 1 unit PRBC if Hb less than 7. Hypertension, hyperlipidemia, and diabetes mellitus type 2: * Resume home medications for hypertension, and hyperlipidemia. * Patient placed on an insulin sliding scale. * Continue to monitor DVT prophylaxis with Eliquis 5 mg b.i.d.. GI prophylaxis with Pepcid 20 mg ATTESTATION BY PHYSICIAN I have seen and examined the patient. I reviewed the documentation, medical decision making, and treatment plan as noted by the resident physician above. I agree with the findings and plan of care. DEEPALI SU MD, HEMA MD Jul 26, 2025 12:43
--- NOTE | 2025-07-26 12:48 | PN ---
[facility] PROGRESS NOTE Date of Service: Jul 26, 2025 Time of Service: 12:48 SUBJECTIVE: [ ] REVIEW OF SYSTEMS CONSTITUTIONAL: Denies fevers, chills, or night sweats. No unintentional weight loss reported. NEUROLOGICAL: Denies headache, amaurosis fugax, motor weakness, sensory deficit, vertigo/spinning sensation, gait abnormalities, or tremors. ENT: No hearing loss, otalgia, otorrhea, rhinitis, rhinorrhea, hoarseness, or sore throat. CARDIOVASCULAR: complain of throbbing pain at chest inciional site Denies dyspnea on exertion, orthopnea, paroxysmal nocturnal dyspnea, palpitations, life-threatening arrhythmias, claudication. PULMONARY: Denies any shortness of breath, cough, phlegm/sputum, hemoptysis, pleuritic chest pain. SLEEP: Denies morning headaches, daytime somnolence or napping. Denies difficulty falling asleep, staying asleep, waking from sleep. Denies knowledge of snoring. GASTROINTESTINAL: Denies any type of dysphagia to either liquids or solids. Denies nausea, vomiting, pyrosis, early satiety, abdominal pain, diarrhea, constipation, or changes in stool consistency or caliber. Denies coffee-ground emesis, hematemesis, hematochezia, or melanotic stools. GENITOURINARY: Denies frequency, urgency, nocturia, hematuria or incontinence (Storage/Irritative symptoms.) Low urinary stream, straining to void, urinary intermittency or hesitancy, splitting of the voiding stream, terminal dribbling. ENDOCRINOLOGIC: Denies polyuria, polydipsia, polyphagia or heat/cold intolerances. HEMATOLOGIC: Denies thrombophilia/previous clots, or coagulopathy/bleeding disorders. ONCOLOGIC: Denies personal history of malignancy. DERMATOLOGIC: Denies rashes or pruritus. PSYCHIATRIC: Denies any suicidal or homicidal ideation. Denies hallucinations. PHYSICAL EXAM GENERAL APPEARANCE: The patient is awake, alert, and oriented, in no acute cardiopulmonary distress. NEUROLOGICAL: Cranial nerves II-XII grossly intact. Motor is 5/5 in bilateral upper and lower extremities proximal to distal. No sensory deficits. HEENT: Face is symmetric. Pupils are equal and reactive. Extraocular movements are intact. NECK: Supple. No JVD. No thyromegaly. No submental, submandibular, pre- /postauricular, occipital or supraclavicular lymphadenopathy. CHEST: Normal chest expansion. No Telemetry. LUNGS: Absence of any rales, rhonchi or any wheezing. CARDIOVASCULAR: Regular. S1 and S2 normal. No appreciable rubs, murmurs or gallops. ABDOMEN: Soft, nontender, and nondistended. There is no rebound, voluntary guarding, or rigidity. : Deferred. No Edouard. EXTREMITIES: Non-edematous and not cyanotic. No clubbing. Good capillary refill. SKIN: No skin breakdown. Vital Signs (last 8hr) Date Time Temp Pulse Resp B/P (MAP) Pulse Ox O2 Delivery O2 Flow Rate FiO2 07/26/25 12:00 97.5 95 18 160/83 98 Room Air 07/26/25 10:00 99.0 85 18 173/78 96 Room Air 07/26/25 08:00 97.5 82 15 157/74 95 Room Air 07/26/25 06:07 78 16 144/69 94 Room Air* 0 21 LABS: Laboratory: Test 07/26/25 11:50 07/26/25 05:51 07/25/25 16:50 Range/Units Whole Blood Glucose 192 H 70-110 MG/DL White Blood Count 11.9 H 4.8-10.8 K/uL Red Blood Count 3.37 L 4.00-5.50 MIL/uL Hemoglobin 9.2 L 12.0-16.0 g/dL Hematocrit 30.0 L 36-48 % Mean Corpuscular Volume 89.0 79-99 fL Mean Corpuscular Hemoglobin 27.3 27.0-33.0 pg Mean Corpuscular Hemoglobin Concent 30.7 L 32.0-36.0 g/dL Red Cell Distribution Width 18.6 H 11.0-15.5 % Platelet Count 518 H 130-400 K/uL Mean Platelet Volume 9.3 7.5-10.5 fL Immature Granulocyte % (Auto) 0.5 0-1 % Neutrophils (%) (Auto) 74.7 40.0-77.0 % Lymphocytes (%) (Auto) 13.4 L 21.0-51.0 % Monocytes (%) (Auto) 7.9 3.0-13.0 % Eosinophils (%) (Auto) 2.9 0.0-8.0 % Basophils (%) (Auto) 0.6 0.0-5.0 % Neutrophils # (Auto) 8.9 H 1.8-7.7 K/uL Lymphocytes # (Auto) 1.6 1.0-4.8 K/uL Monocytes # (Auto) 0.9 0.1-1.0 K/uL Eosinophils # (Auto) 0.35 0.00-0.70 K/uL Basophils # (Auto) 0.07 0.00-0.20 K/uL Absolute Immature Granulocyte (auto 0.06 0-1 K/uL Nucleated Red Blood Cells 0.0 0.0-0.19 % Sodium Level 132 L 136-145 mmol/L Potassium Level 4.3 3.5-5.1 mmol/L Chloride Level 95 L 101-111 mmol/L Carbon Dioxide Level 27 21-32 mmol/L Blood Urea Nitrogen 46 H 7-18 mg/dL Creatinine 6.3 H 0.5-1.0 mg/dL Glomerular Filtration Rate Calc 7 >90 mL/min Random Glucose 225 H 70-105 mg/dL Lactic Acid Level 1.5 0.8-2.5 mmol/L Total Calcium 8.8 8.5-10.1 mg/dL Magnesium Level 2.20 1.80-2.40 mg/dL Total Bilirubin 0.4 0.2-1.0 mg/dL Aspartate Amino Transf (AST/SGOT) 15 10-37 U/L Alanine Aminotransferase (ALT/SGPT) 18 12-78 U/L Alkaline Phosphatase 321 H 50-136 U/L Troponin I High Sensitivity 15 4-50 ng/L Total Protein 7.5 6.0-8.3 g/dL Albumin 3.3 L 3.5-5.0 g/dL Red Blood Cell Morphology See comments Current Medications Medications (Trade) Dose Ordered Sig/Ryan Route PRN Reason Start Time Stop Time Status Last Admin Dose Admin Aztreonam 0.5 gm/ Sodium Chloride 50 ml @ 100 mls/hr Q8H IVPB 07/26/25 06:00 08/05/25 05:59 07/26/25 05:50 100 MLS/HR Dextrose (D50w) 50 ml AD PRN IV HYPOGLYCEMIA PROTOCOL 07/25/25 20:30 08/24/25 20:29 Epoetin Carl-epbx (Retacrit) 10,000 unit QMOWEFR[DIALYSIS] SQ 07/26/25 16:00 08/25/25 15:59 Famotidine (Pepcid 20mg Tab) 20 mg Q48H PO 07/25/25 21:00 08/24/25 20:59 07/25/25 22:44 20 MG Glucagon (Glucagon 1mg Kit) 1 mg AD PRN IM HYPOGLYCEMIA PROTOCOL 07/25/25 20:30 08/24/25 20:29 Insulin Human Regular (humuLIN R 100 UNIT/ML 3ML) INSULIN SLIDING SCAL... 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 q.48h for GI prophylaxis We will start on insulin sliding scale AC & HS with hypoglycemia protocol We will add prn medication for fever,pain,cough , nausea and vomiting We will obtain ultrasound of the chest wall We will reconcile home meds once medlist available We will seek cardiovascular consultation We will seek Infectious Disease consultation for antibiotic guidance We will seek pulmonology consultation We will request labs in am Further orders to follow depending on above results Case discussed with attending physician and came up with above treatment and plan of care. LISA KRAFT MD Jul 26, 2025 12:48
--- NOTE | 2025-07-26 14:13 | NUR ---
DCP: HOME Pt goes to [facility] for dialysis, family transports to treatments and as needed. Pt states she and Mickey, are , but he remains in he home o help care for their disabled son, who requires 24/7. Daughter assists pt o bathe, dress and groom. Pt uses a w/c, no HH or provider services. Pt denies dc needs and will return home
--- NOTE | 2025-07-26 15:40 | NUR ---
REPORT GIVEN TO NASIR JUNIOR
[2025-07-26] MEDS: EPOETIN ALFA-EPBX (NON-ESRD) 10,000 UNIT/ML VIAL SQ SCH (17:45)
--- NOTE | 2025-07-26 22:17 | CONS ---
REFERRING PHYSICIAN: Dr. Mitchell REASON FOR CONSULTATION: ESRD, coronary artery disease. HISTORY OF PRESENT ILLNESS: A 55-year-old female with history of diabetes mellitus, hypertension. She has a history of end-stage renal disease, on dialysis thrice a week. The patient is status post CABG in the past. The patient had multiple surgeries post-CABG secondary to dehiscence of her sternotomy wound. The patient presents to the hospital with complaints of increasing shortness of breath and orthopnea. CT scan of the chest reveals some postoperative intersternal collection, and the patient is being seen in consultation for all of the above. She does receive dialysis on a Saturday, Saturday, and Saturday schedule. PAST MEDICAL HISTORY: Diabetes mellitus, hypertension, coronary artery disease, and ESRD. PAST SURGICAL HISTORY: CABG, AV access. SOCIAL HISTORY: She lives with family. No active tobacco or alcohol use. FAMILY HISTORY: There is no renal disease in the family. ALLERGIES: She has multiple allergies, all of which are noted. MEDICATIONS: Medications are all reviewed. REVIEW OF SYSTEMS: GENERAL: She is feeling weak and tired. HEENT: No change in vision. No change in hearing. CARDIOVASCULAR: There are no current chest pains or palpitations. PULMONARY: She has chronic shortness of breath. GASTROINTESTINAL: She is tolerating a diet. MUSCULOSKELETAL: Complains of weakness. NEUROLOGIC: No history of seizures or focal deficits. PSYCHIATRIC: No history of hallucinations or psychosis. ENDOCRINE: Diabetes mellitus. No history of thyroid disease. HEME: No history of anemia. No history of malignancy. PHYSICAL EXAMINATION: VITAL SIGNS: Blood pressure 144/69. Pulse 70s. She is afebrile. GENERAL: She is a chronically ill, much [id number] female laying in bed on the medical floor. HEENT: Head is atraumatic. Pupils are equal, round, and reactive to light. Oropharynx is without exudate. Nares are clear. NECK: There is no JVP. There is no thyromegaly. No masses. CARDIOVASCULAR: Heart is regular. There is no S3 or S4 gallop. LUNGS: Coarse with equal thoracic movement. ABDOMEN: Soft, nontender, and nontender. EXTREMITIES: There are no clubbing, no cyanosis. NEUROLOGICAL: She is awake. She is alert. She is oriented. SKIN: Reveals no rashes or nodules. BACK: There are no CVA tenderness. No back deformities. LABORATORY DATA: Sodium 132, BUN 46, creatinine 6, albumin 3.3. Hemoglobin 9.2, hematocrit 30, white cell count 12,000. CT scan is personally reviewed. IMPRESSION: * Sternal wound infection. * Diabetes mellitus. * Hypertension. * End-stage renal disease. PLAN: The patient's CT scan does reveal underlying fluid collection. The patient with leukocytosis. She has been started on broad-spectrum antibiotics. We will await culture results. The patient also will be seen by Cardiovascular Surgery. She does have a history of end-stage renal disease, on dialysis, on a Saturday, Saturday, and Saturday schedule. The patient will proceed with dialysis on the day of this consultation and continue 3 times per week. The patient will be resumed on Epogen for the anemia. All labs, including phosphorus, will be rechecked in the a.m. We will continue to follow closely. The patient with multiple questions, all of which were answered. TID: [id number] RECEIPT: [id number]
[2025-07-27] VITALS (7 sets, daily range): BP systolic 141–179; BP diastolic 60–92; PULSE 72–83; RESP 16–20; TEMP 97.9–98.2; O2SAT 98
--- NOTE | 2025-07-27 02:17 | CONS ---
INFECTIOUS DISEASE CONSULTATION DATE OF SERVICE: 07/26/2025 REQUESTING PHYSICIAN: Alex Arrieta NP. REASON FOR CONSULTATION: Chest wall abscess. HISTORY OF PRESENT ILLNESS: This is a 55-year-old female with a history of hypertension, diabetes mellitus, coronary artery disease, and she was started on dialysis. She presented to the hospital with chest wall pain, swelling, and redness. The patient had CABG done in 01/2025. It was complicated by sternal wound infection. The patient was transferred to a hospital in [place] where pectoralis flap reconstruction was done. The patient has no fever or chills. CT scan done now showed a small pocket of possible abscess. The patient was started on vancomycin and aztreonam. No cough. No hemoptysis. No pleuritic pain. PAST MEDICAL HISTORY: * Diabetes mellitus. * Hypertension. * Dyslipidemia. * Coronary artery disease. * She was started on dialysis. * Obesity. * Sternal wound infection and dehiscence. PAST SURGICAL HISTORY: * Cardiac catheterization. * CABG. * AV fistula. * Sternal wound reconstruction. ALLERGIES: * PENICILLIN. * SULFA. * CIPROFLOXACIN. * KEPPRA. CURRENT MEDICATIONS: * Vancomycin. * Aztreonam. * Insulin. * Tylenol. * Zofran. SOCIAL HISTORY: No alcohol, tobacco or illicit drug use. FAMILY HISTORY: Positive for diabetes mellitus. REVIEW OF SYSTEMS: Greater than 10 systems were reviewed negative except as mentioned above. PHYSICAL EXAMINATION: GENERAL: Elderly female, awake, not in distress. VITAL SIGNS: Temperature 99.1, pulse 85, respirations 20, BP 173/78. EYES: No icterus. Pupils equal, round and reactive to light. HENT: No oral thrush seen. Moist oral mucosa. NECK: Supple. No JVD or thyromegaly. LUNGS: Good air entry. No rales, no rhonchi. CARDIOVASCULAR: S1, S2 regular. No murmur heard. ABDOMEN: Obese. Bowel sound is present. The patient's incision is well healed. There is no fluctuance. No erythema or drainage is seen. CENTRAL NERVOUS SYSTEM: Awake, alert, and oriented x 3. No focal deficits. SKIN: No rashes. LYMPHADENOPATHY: No peripheral lymphadenopathy. BACK: No deformity. No pressure ulcer. LABORATORY DATA: Sodium 132, potassium 4.3, BUN 46, creatinine 6.3. WBC 11.4, hemoglobin 9.2, platelets 518. RADIOLOGY: CT of chest shows small ____ of collection. ASSESSMENT: A 55-year-old female presented with chest wall pain and swelling. Current problem include; * Chest wall abscess. * Diabetes mellitus. * Hypertension. * Obesity. * End stage renal disease, on dialysis. PLAN: * The patient needs CT surgery evaluation. * Conitnue vancomycin. * Continue aztreonam. * Continue dialysis. * Continue vitamin D. * Continue DVT prophylaxis. * The patient will be followed up closely. Thank you for allowing me to participate in the care of this patient. TID: [id number] RECEIPT: [id number]
[2025-07-27 05:21] LABS: IMMATURE GRANULOCYTE ABSOLUTE 0.05 K/uL (0-1); NUCLEATED RED BLOOD CELLS 0.0 % (0.0-0.19); PLATELET COUNT (AUTO) 478 K/uL (130-400); RED BLOOD CELL COUNT(AUTO) 3.49 MIL/uL (4.00-5.50); RED CELL DISTRIBUTION WIDTH 18.3 % (11.0-15.5); WHITE BLOOD COUNT (AUTO) 10.4 K/uL (4.8-10.8)
[2025-07-27 05:33] LABS: % IRON SATURATION 17.8 % (22-44); IRON, SERUM 31.0 mcg/dL (50-170)
[2025-07-27 05:39] LABS: ASPARTATE AMINOTRANSFERASE 29.0 U/L (10-37); CREATININE 5.0 mg/dL (0.5-1.0); GLOMERULAR FILTR. RATE CALC 10.0 mL/min (>90); GLUCOSE,RANDOM 140.0 mg/dL (70-105); PHOSPHORUS 5.4 mg/dL (2.5-4.9); SODIUM SERUM 134.0 mmol/L (136-145); TOTAL PROTEIN, SERUM 7.1 g/dL (6.0-8.3); UREA NITROGEN, BLOOD 42.0 mg/dL (7-18)
[2025-07-27] MEDS ORDERED: COMPOUND IV REFRIGERATED 1 EACH IVSOLN MISC PRN (09:00)
[2025-07-27] MEDS ORDERED: COMPOUND IV MISC 1 EACH IVSOLN MISC PRN (09:00)
[2025-07-27] MEDS: ASPIRIN 81MG CHEW TAB PO SCH (10:20)
[2025-07-27] MEDS: Vitamin B Complex/Vit C/Folic Acid PO SCH (10:22)
[2025-07-27 12:31] LABS: HEPATITIS B CORE AB TOTAL Non-Reactive (Nonreactive); HEPATITIS B SURFACE ANTIBODY Positive (Reactive)
[2025-07-27] MEDS: SIMETHICONE 80 MG TAB.CHEW PO PRN (12:49)
--- NOTE | 2025-07-27 12:55 | PN ---
[facility] PROGRESS NOTE Date of Service: Jul 27, 2025 Time of Service: 12:55 SUBJECTIVE: This is a 55-year-old [place] speaking female with past medical history of diabetes type 2, hypertension, hyperlipidemia, coronary artery disease with CABG x2 and end stage renal disease on hemodialysis who presents to the ED for complaints of swelling and tenderness on chest incision site started ye sterday.Patient reports she had a CABG x2 on 01/2025 at [facility] [place] and developed complications she said for which she underwent 5 subsequent surgeries post CABG at [facility].Patient reports throbbing pain on the incisional site when coughing which started yesterday and getting worse today so daughter decided to bring her to this facility for evaluation. Seen and examined patient in the ER awake,alert and coherent,appears comfortable.Patient denies palpitation,shortness of breath, fever,chills ,nausea and vomiting.Lates V/S T98.2, heart rate 80, blood pressure 141/87 saturation 98% on room air. Labs: WBC 12 with negative left shift of neutrophils 79, hemoglobin 9, hematocrit 32, platelet count 563. Sodium 132, chloride 96, BUN 38, creatinine 5.6, GFR eight random glucose [address] chest without contrast result revealed loculated left pleural empyema measuring up to approximately 2.7 cm in thickness associated subpleural scarring and compressive atelectasis of adjacent lung parenchyma. Marked cardiomegaly with enlarged main pulmonary artery measuring 3.2 cm compatible with pulmonary arterial hypertens ion in the appropriate clinical setting. Postoperative sternotomy with failure of sternal fixation and wide diastasis of the sternal halves with a large intersternal fluid collection measuring approximately 0.2 x 4.3 x 12.3 cm occupying the sternal gap, Bentyl flap transposition into the defect is noted in keeping with prior reconstructive surgery. Appearance is concerning for po stoperative intersternal collection, superimposed infection can not be excluded on this noncontrast study. Hepatomegaly with diffuse hepatic steatosis in the visualized upper abdomen. 07/26/2025: Patient was seen and evaluated bedside in ED room 3. She is awake, alert, and oriented x3. Patient denied any significant complaints today. She inquired about her diagnosis and was informed that imaging shows a chest wall fluid collection consistent with a chest wall abscess which does not appear drainable at this time as per radiology. Given concern for her post CABG chest wall abscess, Infectious diseases and Cardiothoracic surgery have been consulted for further evaluation and management recommendations. Vitals signs are notable for hypertension with a blood pressure of 176/82. She will be getting dialyzed today. Patient is afebrile, heart rate in the 80s, respiratory rate stable, and oxygen saturation 97% on room air. Patient remains clinically stable. The plan is to continue monitoring and follow recommendations from Infectious diseases and Cardiothoracic surgery. 07/27: Patient was seen and evaluated bedside in room 324. She is awake, alert, and oriented 3. Nursing staff reports no acute events overnight. Patient states that she no longer has chest pain, including pain at the incision site. Cardiothoracic Surgery evaluated the patient and recommended a CT scan with contrast; however, the patient declined contrast administration due to concerns about kidney function. Infectious Disease evaluated the patient and recommended continuation of current antimicrobial therapy. Patient is currently on aztreonam (Day 2). Patient remains hemodynamically stable. In the afternoon, blood pressure increased to [id number] systolic. Rechecking blood pressure 30 minutes later revealed a blood pressure in 170s. We will administer labetalol if systo lic BP remains >180 mmHg. Plan is to continue close monitoring and follow recommendations from Infectious Disease and Cardiothoracic Surgery. REVIEW OF SYSTEMS CONSTITUTIONAL: Denies fevers, chills, or night sweats. No unintentional weight loss reported. NEUROLOGICAL: Denies headache, amaurosis fugax, motor weakness, sensory deficit, vertigo/spinning sensation, gait abnormalities, or tremors. ENT: No hearing loss, otalgia, otorrhea, rhinitis, rhinorrhea, hoarseness, or sore throat. CARDIOVASCULAR: Denies dyspnea on exertion, orthopnea, paroxysmal nocturnal dyspnea, palpitations, life-threatening arrhythmias, claudication. PULMONARY: Denies any shortness of breath, cough, phlegm/sputum, hemoptysis, pleuritic chest pain. SLEEP: Denies morning headaches, daytime somnolence or napping. Denies difficulty falling asleep, staying asleep, waking from sleep. Denies knowledge of snoring. GASTROINTESTINAL: Denies any type of dysphagia to either liquids or solids. Denies nausea, vomiting, pyrosis, early satiety, abdominal pain, diarrhea, constipation, or changes in stool consistency or caliber. Denies coffee-ground emesis, hematemesis, hematochezia, or melanotic stools. GENITOURINARY: Denies frequency, urgency, nocturia, hematuria or incontinence (Storage/Irritative symptoms.) Low urinary stream, straining to void, urinary intermittency or hesitancy, splitting of the voiding stream, terminal dribbling. ENDOCRINOLOGIC: Denies polyuria, polydipsia, polyphagia or heat/cold intolerances. HEMATOLOGIC: Denies thrombophilia/previous clots, or coagulopathy/bleeding disorders. ONCOLOGIC: Denies personal history of malignancy. DERMATOLOGIC: Denies rashes or pruritus. PSYCHIATRIC: Denies any suicidal or homicidal ideation. Denies hallucinations. PHYSICAL EXAM GENERAL APPEARANCE: The patient is awake, alert, and oriented, in no acute cardiopulmonary distress. NEUROLOGICAL: Cranial nerves II-XII grossly intact. Motor is 5/5 in bilateral upper and lower extremities proximal to distal. No sensory deficits. HEENT: Face is symmetric. Pupils are equal and reactive. Extraocular movements are intact. NECK: Supple. No JVD. No thyromegaly. No submental, submandibular, pre- /postauricular, occipital or supraclavicular lymphadenopathy. CHEST: Normal chest expansion. No Telemetry. LUNGS: Absence of any rales, rhonchi or any wheezing. CARDIOVASCULAR: Regular. S1 and S2 normal. No appreciable rubs, murmurs or gallops. ABDOMEN: Soft, nontender, and nondistended. There is no rebound, voluntary guarding, or rigidity. : Deferred. No Edouard. EXTREMITIES: Non-edematous and not cyanotic. No clubbing. Good capillary refill. SKIN: No skin breakdown. Vital Signs (last 8hr) Date Time Temp Pulse Resp B/P (MAP) Pulse Ox O2 Delivery O2 Flow Rate FiO2 07/27/25 08:00 98.2 82 20 147/60 98 Room Air LABS: Laboratory: Test 07/27/25 11:57 07/27/25 05:07 07/26/25 12:10 07/26/25 05:51 Range/Units Whole Blood Glucose 203 H 70-110 MG/DL White Blood Count 10.4 4.8-10.8 K/uL Red Blood Count 3.49 L 4.00-5.50 MIL/uL Hemoglobin 9.5 L 12.0-16.0 g/dL Hematocrit 32.4 L 36-48 % Mean Corpuscular Volume 92.8 79-99 fL Mean Corpuscular Hemoglobin 27.2 27.0-33.0 pg Mean Corpuscular Hemoglobin Concent 29.3 L 32.0-36.0 g/dL Red Cell Distribution Width 18.3 H 11.0-15.5 % Platelet Count 478 H 130-400 K/uL Mean Platelet Volume 9.6 7.5-10.5 fL Immature Granulocyte % (Auto) 0.5 0-1 % Neutrophils (%) (Auto) 69.7 40.0-77.0 % Lymphocytes (%) (Auto) 16.4 L 21.0-51.0 % Monocytes (%) (Auto) 8.4 3.0-13.0 % Eosinophils (%) (Auto) 3.8 0.0-8.0 % Basophils (%) (Auto) 1.2 0.0-5.0 % Neutrophils # (Auto) 7.2 1.8-7.7 K/uL Lymphocytes # (Auto) 1.7 1.0-4.8 K/uL Monocytes # (Auto) 0.9 0.1-1.0 K/uL Eosinophils # (Auto) 0.39 0.00-0.70 K/uL Basophils # (Auto) 0.12 0.00-0.20 K/uL Absolute Immature Granulocyte (auto 0.05 0-1 K/uL Nucleated Red Blood Cells 0.0 0.0-0.19 % Sodium Level 134 L 136-145 mmol/L Potassium Level 4.9 3.5-5.1 mmol/L Chloride Level 94 L 101-111 mmol/L Carbon Dioxide Level 26 21-32 mmol/L Blood Urea Nitrogen 42 H 7-18 mg/dL Creatinine 5.0 H 0.5-1.0 mg/dL Glomerular Filtration Rate Calc 10 >90 mL/min Random Glucose 140 H 70-105 mg/dL Total Calcium 9.1 8.5-10.1 mg/dL Phosphorus Level 5.4 H 2.5-4.9 mg/dL Iron Level 31 L 50-170 mcg/dL Total Iron Binding Capacity 174 L 250-450 mcg/dL Percent Iron Saturation 17.8 L 22-44 % Total Bilirubin 0.5 # 0.2-1.0 mg/dL Aspartate Amino Transf (AST/SGOT) 29 10-37 U/L Alanine Aminotransferase (ALT/SGPT) 22 # 12-78 U/L Alkaline Phosphatase 335 H 50-136 U/L Total Protein 7.1 6.0-8.3 g/dL Albumin 3.3 L 3.5-5.0 g/dL Hepatitis B Surface Antigen. Non-Reactive Nonreactive Hepatitis B Surface Antibody. Positive Reactive Hepatitis B Core Total Antibody. Non-Reactive Nonreactive Hepatitis C Antibody Non-Reactive Nonreactive Hemoglobin A1c 6.3 H 4.0-6.0 % Estimated Average Glucose (eAG) 134 H 70-126 mg/dL Lactic Acid Level 1.5 0.8-2.5 mmol/L Magnesium Level 2.20 1.80-2.40 mg/dL Troponin I High Sensitivity 15 4-50 ng/L C-Reactive Protein, Quantitative 5.00 H 0.5-3.0 mg/L Test 07/25/25 16:50 Range/Units Red Blood Cell Morphology See comments Current Medications Medications (Trade) Dose Ordered Sig/Ryan Route PRN Reason Start Time Stop Time Status Last Admin Dose Admin Apixaban (EliquIS) 5 mg BID PO 07/26/25 21:00 08/25/25 20:59 07/27/25 10:21 5 MG Aspirin (Aspirin 81mg Chew Tab) 81 mg DAILY PO 07/27/25 09:00 08/26/25 08:59 07/27/25 10:20 81 MG Atorvastatin Calcium (LIPItor 40MG) 40 mg HS PO 07/26/25 21:00 08/25/25 20:59 07/26/25 20:58 40 MG Aztreonam 0.5 gm/ Sodium Chloride 50 ml @ 100 mls/hr Q8H IVPB 07/26/25 06:00 08/05/25 05:59 07/27/25 05:21 100 MLS/HR Clopidogrel Bisulfate (plaVIX 75MG) 75 mg DAILY PO 07/27/25 09:00 08/26/25 08:59 07/27/25 10:22 75 MG Dextrose (D50w) 50 ml AD PRN IV HYPOGLYCEMIA PROTOCOL 07/25/25 20:30 08/24/25 20:29 Epoetin Carl-epbx (Retacrit) 10,000 unit QMOWEFR[DIALYSIS] SQ 07/26/25 16:00 08/25/25 15:59 07/26/25 17:45 10,000 UNIT Famotidine (Pepcid 20mg Tab) 20 mg Q48H PO 07/25/25 21:00 07/27/25 10:45 DC 07/25/25 22:44 20 MG Famotidine (Pepcid 20mg Tab) 20 mg Q48H PO 07/27/25 21:00 08/26/25 20:59 Gabapentin (NEURontin 100 mg CAP) 100 mg TID PO 07/26/25 14:00 08/25/25 13:59 07/27/25 10:21 100 MG Glucagon (Glucagon 1mg Kit) 1 mg AD PRN IM HYPOGLYCEMIA PROTOCOL 07/25/25 20:30 08/24/25 20:29 Hydralazine HCl (APRESOLine 20MG INJ) 10 mg Q6H PRN IV ADMINISTER FOR SBP > 180 07/27/25 12:30 08/26/25 12:29 Hydralazine HCl (APRESOLine 20MG INJ) 20 mg Q6H PRN IV ADMINISTER FOR SBP > 180 07/27/25 12:30 07/27/25 12:25 DC Insulin Human Regular (humuLIN R 100 UNIT/ML 3ML) INSULIN SLIDING SCAL... ACHS SQ 07/25/25 21:00 08/24/25 20:59 07/26/25 21:06 3 UNIT Meropenem (Merrem 1gm) 1 gm Q8H IVPB 07/25/25 21:30 07/25/25 21:14 DC Meropenem (Merrem 500mg) 500 mg Q24H IVPB 07/25/25 21:30 07/25/25 22:02 DC Metoclopramide HCl (regLAN 5 MG TAB) 5 mg TID PO 07/26/25 14:00 08/25/25 13:59 07/27/25 10:21 5 MG Metoprolol Tartrate (loprESSOR) 12.5 mg BID PO 07/27/25 21:00 08/26/25 20:59 Metoprolol Tartrate (loprESSOR) 25 mg BID PO 07/26/25 21:00 07/27/25 11:58 DC 07/26/25 20:58 25 MG Nifedipine (adALAT 30MG) 30 mg DAILY PO 07/27/25 09:00 08/26/25 08:59 07/27/25 10:20 30 MG Ondansetron HCl (zoFRAN 4MG INJ) 4 mg Q6H PRN IVP NAUSEA/VOMITING 07/26/25 06:00 08/25/25 05:59 07/26/25 05:49 4 MG Sevelamer HCl (RENAgel 800 MG TAB) 800 mg TIDMEALS PO 07/27/25 12:00 08/26/25 11:59 Simethicone (Mylicon) 80 mg PCHS PRN PO GI GAS 07/27/25 11:00 08/26/25 10:59 Sodium Chloride 1,000 ml @ 0 mls/hr ONCE IV 07/26/25 11:00 08/25/25 10:59 07/26/25 11:02 100 MLS/HR Vitamin B Complex/ Vit C/Folic Acid (Nephrovite Tablet) 1 cap DAILY PO 07/27/25 09:00 08/26/25 08:59 07/27/25 10:22 1 CAP DIAGNOSTICS / RADIOLOGY: [ ] ASSESSMENT: Chest wall abscess with recent CABG/ post operative sternotomy with failure sternal fixation with fluid collection per CT POA 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 * Follow up chest ultrasound (07/25/2025) demonstrated localized fluid collections within the sternal gap between the sternal halves at the midline anterior chest wall, measuring 1.7 x 1.6 x 2.2 And 1.9 x 0.7 x 2.1 cm. * Wound cultures from previous visit did not grow any organism. * Aerobic and anaerobic cultures will be done from the wound, follow up. * Cardiothoracic surgery and Infectious diseases consulted, we will follow their recommendations. * Cardiothoracic surgery recommended a CT with contrast, however patient refused due to concerns about her worsening renal function. * Continue aztreonam (day 2). * We will order CRP and follow up. * Continue to monitor clinically and with serial labs. End-stage renal disease dependent on hemodialysis: * Patient has a end-stage renal disease with hemodialysis scheduled on Saturday. * Nephrology consulted, pending recommendations. * Patient received her dialysis Saturday as scheduled (predialysis creatinine at 6.3). * I&O: -7600 ml (HD fluid) Saturday. Anemia, POA: * Patient's hemoglobin on admission at 9.7, and 9.5 today. * Suspected due to history of end-stage renal disease. * Iron panel revealed a serum iron of 31, TIBC of 174, transferrin saturation of 17.8 And the patient was started on IV Venofer. * Continue erythropoietin with dialysis. * Transfuse 1 unit PRBC if Hb less than 7. Hypertension, hyperlipidemia, and diabetes mellitus type 2: * Resume home medications for hypertension, and hyperlipidemia. * Patient placed on an insulin sliding scale. * Continue to monitor DVT prophylaxis with Eliquis 5 mg b.i.d.. GI prophylaxis with Pepcid 20 mg ATTESTATION BY PHYSICIAN I have seen and examined the patient. I reviewed the documentation, medical decision making, and treatment plan as noted by the resident physician above. I agree with the findings and plan of care. DEEPALI SU MD, HEMA MD Jul 27, 2025 12:55
--- NOTE | 2025-07-27 13:25 | PN ---
FOLLOWUP PROGRESS NOTE SUBJECTIVE: A 55-year-old female who has diabetes mellitus and hypertension. She has a history of known coronary artery disease status post CABG in the past. She presented to the hospital and found to have a fluid restriction in the sternum. The patient was started on antibiotics. The patient is to be seen by cardiovascular surgery. She has a history of end-stage renal disease on dialysis 3 times per week. The patient did receive dialysis yesterday without difficulty and the patient is being seen as a followup visit for all the above. REVIEW OF SYSTEMS: CONSTITUTIONAL: She is feeling improved since admission. HEENT: No change in vision. No change in hearing. CARDIOVASCULAR: There is no current chest pain or palpitations. PULMONARY: There is no shortness of breath. GASTROINTESTINAL: She is tolerating a diet. MUSCULOSKELETAL: Complains of weakness. PHYSICAL EXAMINATION: VITAL SIGNS: Blood pressure is 144/75, pulse in the 70s. GENERAL: Chronically ill female, much older than appearing. HEENT: Head is atraumatic. Pupils are equal, round and reactive to light. Oropharynx is without exudate. Nares are clear. NECK: There is no JVP. There is no thyromegaly, no mass. CARDIOVASCULAR: Regular. There is no S3 or S4 gallop. LUNGS: Coarse with equal thoracic movement. ABDOMEN: Soft, nondistended, and nontender. EXTREMITIES: Reveal no clubbing, no cyanosis. NEUROLOGICAL: She is awake. She is at her baseline. LABORATORY DATA: BUN 42, creatinine 5, iron levels are noted, sodium 134, hemoglobin 9.5, and hematocrit 32. IMPRESSION: * Sternal wound. * Diabetes mellitus. * Hypertension. * End-stage renal disease. * Anemia. PLAN: The patient continues with the antibiotics as prescribed. The patient is to be seen by cardiovascular surgery. The patient remains on Epogen for the anemia. The patient will be given a dose of Venofer for the iron deficiency. Blood pressure is under adequate control. She remains on her phosphate binders. We will continue to follow closely. Once the patient is discharged, she will follow up at the dialysis unit. TID: [id number] RECEIPT: [id number]
--- NOTE | 2025-07-27 14:30 | NUR ---
DISCUSSED GETTING CONSENT FOR IV CONTRAST FOR POSSIBLE CT WITH CONTRAST STUDY, PER DR. TATE. PATIENT IS VERY AGAINST ANY USE OF CONTRAST. THIS WAS REPORTED TO PRIMARY.
--- NOTE | 2025-07-27 18:14 | PN ---
INFECTIOUS DISEASE PROGRESS NOTE Date of Service: Jul 27, 2025 SUBJECTIVE: This is a 55-year-old female patient with past medical history of a coronary artery bypass graft with complications and skin graft to sternotomy site who presented to the hospital with chief complaint of tenderness and swelling to the chest incision site. A chest CT done on admission showed loculated left pleural empyema, with a large intersternal fluid collection measuring approximately 4.2 4.3 12.3 cm occupying the sternal gap concerning for postoperative intersternal collection and the reason for this consult. A CT of the chest with contrast has been recommended by Cardiothoracic surgeon patient however has declined due to her end-stage renal disease status. Patient has remained afebrile and the WBC has trended down to 10.4 today. Patient was dialyzed yesterday and 3.8 L were removed. Patient reported that the sternal pain is less today. No dyspnea. We will continue on aztreonam as currently ordered. PHYSICAL EXAM EYES: Anicteric. Pupils equal and reactive. HENT: No oral thrush seen, moist Oral mucosa NECK: Supple, no JVD or thyromegaly. LUNGS: Good air entry. No rales, no rhonchi. CARDIOVASCULAR: S1, S2 regular. No murmur heard. ABDOMEN: Soft, non tender, bowel sounds present. CENTRAL NERVOUS SYSTEM: Awake, alert, oriented x 3. SKIN: No rashes, no swelling. LYMPHATICS: No peripheral lymphadenopathy MUSCULOSKELETAL: No joint swelling, erythema or tenderness. EXTREMITIES: No cyanosis or clubbing. BACK: No deformity, no pressure ulcer. GENITOURINARY: No dysuria or hematuria. Vital Sign (Last 12 Hours) 07/27/25 07/27/25 07/27/25 07/27/25 08:00 08:30 12:00 14:21 Temp 98.2 97.9 Pulse 82 76 Resp 20 20 B/P (MAP) 147/60 179/92 166/82 Pulse Ox 98 98 96 O2 Delivery Room Air Room Air* Room Air O2 Flow Rate 0 FiO2 21 07/27/25 16:00 Temp 98.1 Pulse 83 Resp 20 B/P (MAP) 166/79 Pulse Ox 97 O2 Delivery Room Air Intake & Output (last 24hrs) 07/26/25 07/26/25 07/27/25 15:00 23:00 07:00 Intake Total 200 ml Output Total 7600 ml 200 ml Balance -7600 ml 200 ml -200 ml LABS: Laboratory: Test 07/27/25 15:47 07/27/25 05:07 07/26/25 12:10 07/26/25 05:51 Range/Units Whole Blood Glucose 226 H 70-110 MG/DL White Blood Count 10.4 4.8-10.8 K/uL Red Blood Count 3.49 L 4.00-5.50 MIL/uL Hemoglobin 9.5 L 12.0-16.0 g/dL Hematocrit 32.4 L 36-48 % Mean Corpuscular Volume 92.8 79-99 fL Mean Corpuscular Hemoglobin 27.2 27.0-33.0 pg Mean Corpuscular Hemoglobin Concent 29.3 L 32.0-36.0 g/dL Red Cell Distribution Width 18.3 H 11.0-15.5 % Platelet Count 478 H 130-400 K/uL Mean Platelet Volume 9.6 7.5-10.5 fL Immature Granulocyte % (Auto) 0.5 0-1 % Neutrophils (%) (Auto) 69.7 40.0-77.0 % Lymphocytes (%) (Auto) 16.4 L 21.0-51.0 % Monocytes (%) (Auto) 8.4 3.0-13.0 % Eosinophils (%) (Auto) 3.8 0.0-8.0 % Basophils (%) (Auto) 1.2 0.0-5.0 % Neutrophils # (Auto) 7.2 1.8-7.7 K/uL Lymphocytes # (Auto) 1.7 1.0-4.8 K/uL Monocytes # (Auto) 0.9 0.1-1.0 K/uL Eosinophils # (Auto) 0.39 0.00-0.70 K/uL Basophils # (Auto) 0.12 0.00-0.20 K/uL Absolute Immature Granulocyte (auto 0.05 0-1 K/uL Nucleated Red Blood Cells 0.0 0.0-0.19 % Sodium Level 134 L 136-145 mmol/L Potassium Level 4.9 3.5-5.1 mmol/L Chloride Level 94 L 101-111 mmol/L Carbon Dioxide Level 26 21-32 mmol/L Blood Urea Nitrogen 42 H 7-18 mg/dL Creatinine 5.0 H 0.5-1.0 mg/dL Glomerular Filtration Rate Calc 10 >90 mL/min Random Glucose 140 H 70-105 mg/dL Total Calcium 9.1 8.5-10.1 mg/dL Phosphorus Level 5.4 H 2.5-4.9 mg/dL Iron Level 31 L 50-170 mcg/dL Total Iron Binding Capacity 174 L 250-450 mcg/dL Percent Iron Saturation 17.8 L 22-44 % Total Bilirubin 0.5 # 0.2-1.0 mg/dL Aspartate Amino Transf (AST/SGOT) 29 10-37 U/L Alanine Aminotransferase (ALT/SGPT) 22 # 12-78 U/L Alkaline Phosphatase 335 H 50-136 U/L Total Protein 7.1 6.0-8.3 g/dL Albumin 3.3 L 3.5-5.0 g/dL Hepatitis B Surface Antigen. Non-Reactive Nonreactive Hepatitis B Surface Antibody. Positive Reactive Hepatitis B Core Total Antibody. Non-Reactive Nonreactive Hepatitis C Antibody Non-Reactive Nonreactive Hemoglobin A1c 6.3 H 4.0-6.0 % Estimated Average Glucose (eAG) 134 H 70-126 mg/dL Lactic Acid Level 1.5 0.8-2.5 mmol/L Magnesium Level 2.20 1.80-2.40 mg/dL Troponin I High Sensitivity 15 4-50 ng/L C-Reactive Protein, Quantitative 5.00 H 0.5-3.0 mg/L DIAGNOSTICS / RADIOLOGY: PATIENT: LEXIS CAMARILLO MR#: [id number] : 1970 SEX: F AGE: 55 LOCATION: ED ORDER [id number] STATUS: REG REPORT#: [id number] SERVICE 1608 REASON: r/o abscess ORDERING PHYSICIAN: MALISSA IBRAHIM PROCEDURE: CHEST WO - CT CHEST W/O CONTRAST STUDY CT chest without intravenous contrast. HISTORY Rule out abscess. TECHNIQUE Axial CT images of the chest were obtained without intravenous contrast. COMPARISON Chest radiograph dated 01/14/2025. FINDINGS LUNGS Both lungs demonstrate heterogeneous attenuation with a mosaic perfusion pattern. There is associated compressive atelectasis adjacent to a loculated left pleural collection. No discrete pulmonary mass is identified. No yifan cavitary lesion is seen. PLEURAL SPACES A loculated left pleural empyema is present, tracking along the left hemithorax with a maximal thickness of approximately 2.7 cm, exerting mass effect on the adjacent lung with subpleural scarring and compressive atelectasis. No right-sided pleural effusion or pneumothorax is identified. HEART AND GREAT VESSELS Marked cardiomegaly is present. The main pulmonary artery is enlarged, measuring approximately 3.2 cm in diameter, compatible with pulmonary arterial hypertension in the appropriate clinical context. No sizable pericardial effusion is identified on this noncontrast examination. MEDIASTINUM AND LYMPH NODES No pathologically enlarged mediastinal, hilar, or axillary lymph nodes are identified by size criteria. Mediastinal fat planes are preserved. CHEST WALL AND POSTSURGICAL CHANGES There is failure of sternal fixation with rupture of sternal sutures and wide diastasis of the sternal halves. A large intersternal fluid collection occupies the gap between the sternal margins, measuring approximately 4.2 4.3 12.3 cm, compatible with a postoperative intersternal collection, with superinfection not excluded on imaging alone. Omental flap transposition from the epigastrium into the sternal defect is visualized, consistent with prior surgical reconstruction. No definite gas locules are seen within the collection on this noncontrast study. UPPER ABDOMEN The visualized liver is enlarged, measuring approximately 18 cm in craniocaudal extent, compatible with hepatomegaly. Diffuse low attenuation of the hepatic parenchyma is in keeping with hepatic steatosis. The remaining visualized upper abdominal structures are unremarkable on this chest CT technique. BONES Apart from the described sternal dehiscence, no acute displaced rib fracture or aggressive osseous lesion is identified. IMPRESSION * Loculated left pleural empyema measuring up to approximately 2.7 cm in thickness with associated subpleural scarring and compressive atelectasis of adjacent lung parenchyma. * Marked cardiomegaly with enlarged main pulmonary artery measuring 3.2 cm, compatible with pulmonary arterial hypertension in the appropriate clinical setting. * Postoperative sternotomy with failure of sternal fixation and wide diastasis of the sternal halves, with a large intersternal fluid collection measuring approximately 4.2 4.3 12.3 cm occupying the sternal gap; omental flap transposition into the defect is noted, in keeping with prior reconstructive surgery. Imaging appearance is concerning for postoperative intersternal collection; superimposed infection cannot be excluded on this noncontrast study. * Hepatomegaly with diffuse hepatic steatosis in the visualized upper abdomen. /[place] DICTATED BY: ANGELO SPICER MD DATE: 07/25/251854 ASSESSMENT: Possible chest wall abscess. Leukocytosis POA, resolving. Diabetes mellitus. End-stage renal disease, on dialysis. PLAN: Continue aztreonam. Continue GI prophylaxis. Continue pain management. Continue dialysis per Nephrology recommendations. We will follow up on final cultures results. This case was reviewed and discussed with my supervising physician Dr. Maria and the above assessment and plan was formulated and agreed upon. ATTESTATION BY PHYSICIAN I have seen and examined the patient. I reviewed the documentation, medical decision making, and treatment plan as noted by the mid-level provider above. I agree with the findings and plan of care. PRISCILLA MARIA MD, MIRTA L [facility] Jul 27, 2025 18:14
[2025-07-27] MEDS: FAMOTIDINE 20MG TAB PO SCH (20:40)
--- NOTE | 2025-07-27 23:10 | PN ---
TIME: 2:00 p.m. SUBJECTIVE: The patient is a 55-year-old female who back in 02/2025 underwent coronary artery bypass grafting. Subsequently, she underwent sterile debridement in a muscle flap by plastic surgery a few weeks ago. Now presents to the hospital because of some tenderness in the area. CT scan of the chest was done and thoracic surgery was consulted. PHYSICAL EXAMINATION: NEUROLOGIC: Alert and oriented. CARDIAC: S1, S2. Regular rate and rhythm. CHEST: Soft, nontender. No cellulitis. No purulence. No erythema. ASSESSMENT AND PLAN: The patient is status post coronary artery bypass grafting in 02/2025, now with chest wall abscess, status post debridement and now with muscle flap. We reviewed the CT scan of the chest. I do not appreciate any abscess cavity or any active infection of the CT scan of the chest. I will refer her back to her plastic surgeon as an outpatient in [place]. She does not need to be in the hospital at this time. I do not see the need for any antibiotics as I cannot appreciate any infection. Her plastic surgeon will see her as an outpatient at this time. TID: [id number] RECEIPT: [id number]
[2025-07-28] VITALS (21 sets, daily range): BP systolic 124–183; BP diastolic 59–89; PULSE 79–104; RESP 16–20; TEMP 97.5–98.3; O2SAT 95–96
[2025-07-28 05:04] LABS: IMMATURE GRANULOCYTE ABSOLUTE 0.06 K/uL (0-1); NUCLEATED RED BLOOD CELLS 0.0 % (0.0-0.19); PLATELET COUNT (AUTO) 489 K/uL (130-400); RED BLOOD CELL COUNT(AUTO) 3.50 MIL/uL (4.00-5.50); RED CELL DISTRIBUTION WIDTH 18.2 % (11.0-15.5); WHITE BLOOD COUNT (AUTO) 11.8 K/uL (4.8-10.8)
[2025-07-28 05:21] LABS: ASPARTATE AMINOTRANSFERASE 15.0 U/L (10-37); CREATININE 6.7 mg/dL (0.5-1.0); GLOMERULAR FILTR. RATE CALC 7.0 mL/min (>90); GLUCOSE,RANDOM 158.0 mg/dL (70-105); SODIUM SERUM 129.0 mmol/L (136-145); TOTAL PROTEIN, SERUM 7.2 g/dL (6.0-8.3); UREA NITROGEN, BLOOD 62.0 mg/dL (7-18)
--- NOTE | 2025-07-28 11:29 | PN ---
INFECTIOUS DISEASE PROGRESS NOTE Date of Service: Jul 28, 2025 SUBJECTIVE: This is a 55-year-old female patient who has been seen at bedside in room 324. Blood cultures remain negative. No fever this morning. We will discontinue on aztreonam and start patient on Meropenem1 g IV every 24 hours. We will have Case management evaluate patient for referral to [facility] for outpatient IV antibiotics with Meropenem for 14 days. PHYSICAL EXAM EYES: Anicteric. Pupils equal and reactive. HENT: No oral thrush seen, moist Oral mucosa NECK: Supple, no JVD or thyromegaly. LUNGS: Good air entry. No rales, no rhonchi. CARDIOVASCULAR: S1, S2 regular. No murmur heard. ABDOMEN: Soft, non tender, bowel sounds present. CENTRAL NERVOUS SYSTEM: Awake, alert, oriented x 3. SKIN: No rashes, no swelling. LYMPHATICS: No peripheral lymphadenopathy MUSCULOSKELETAL: No joint swelling, erythema or tenderness. EXTREMITIES: No cyanosis or clubbing. BACK: No deformity, no pressure ulcer. GENITOURINARY: No dysuria or hematuria. Vital Sign (Last 12 Hours) 07/28/25 07/28/25 07/28/25 07/28/25 00:00 04:09 08:00 08:00 Temp 98.1 98.2 97.5 98.1 Pulse 80 80 82 80 Resp 20 20 18 18 B/P (MAP) 144/78 140/69 169/82 124/59 Pulse Ox 95 96 96 O2 Delivery Room Air Room Air Room Air Room Air 07/28/25 07/28/25 07/28/25 07/28/25 09:00 09:15 09:30 09:45 Temp 97.5 Pulse 82 84 85 86 Resp 18 16 18 18 B/P (MAP) 155/76 178/89 179/88 159/86 O2 Delivery Room Air Room Air Room Air Room Air 07/28/25 07/28/25 07/28/25 07/28/25 10:00 10:15 10:30 10:45 Pulse 83 85 83 82 Resp 18 18 18 18 B/P (MAP) 160/81 160/76 167/81 183/86 O2 Delivery Room Air Room Air Room Air Room Air 07/28/25 07/28/25 11:00 11:15 Pulse 80 81 Resp 16 16 B/P (MAP) 182/86 182/84 O2 Delivery Room Air Room Air Intake & Output (last 24hrs) 07/27/25 07/27/25 07/28/25 15:00 23:00 07:00 Intake Total 570.0 ml Balance 570.0 ml LABS: Laboratory: Test 07/28/25 11:15 07/28/25 04:46 07/27/25 05:07 07/26/25 12:10 Range/Units Whole Blood Glucose 127 H 70-110 MG/DL White Blood Count 11.8 H 4.8-10.8 K/uL Red Blood Count 3.50 L 4.00-5.50 MIL/uL Hemoglobin 9.6 L 12.0-16.0 g/dL Hematocrit 30.8 L 36-48 % Mean Corpuscular Volume 88.0 79-99 fL Mean Corpuscular Hemoglobin 27.4 27.0-33.0 pg Mean Corpuscular Hemoglobin Concent 31.2 L 32.0-36.0 g/dL Red Cell Distribution Width 18.2 H 11.0-15.5 % Platelet Count 489 H 130-400 K/uL Mean Platelet Volume 9.5 7.5-10.5 fL Immature Granulocyte % (Auto) 0.5 0-1 % Neutrophils (%) (Auto) 71.5 40.0-77.0 % Lymphocytes (%) (Auto) 15.8 L 21.0-51.0 % Monocytes (%) (Auto) 8.1 3.0-13.0 % Eosinophils (%) (Auto) 3.3 0.0-8.0 % Basophils (%) (Auto) 0.8 0.0-5.0 % Neutrophils # (Auto) 8.4 H 1.8-7.7 K/uL Lymphocytes # (Auto) 1.9 1.0-4.8 K/uL Monocytes # (Auto) 1.0 0.1-1.0 K/uL Eosinophils # (Auto) 0.39 0.00-0.70 K/uL Basophils # (Auto) 0.10 0.00-0.20 K/uL Absolute Immature Granulocyte (auto 0.06 0-1 K/uL Nucleated Red Blood Cells 0.0 0.0-0.19 % Sodium Level 129 L 136-145 mmol/L Potassium Level 4.7 3.5-5.1 mmol/L Chloride Level 91 L 101-111 mmol/L Carbon Dioxide Level 25 21-32 mmol/L Blood Urea Nitrogen 62 #H 7-18 mg/dL Creatinine 6.7 H 0.5-1.0 mg/dL Glomerular Filtration Rate Calc 7 >90 mL/min Random Glucose 158 H 70-105 mg/dL Total Calcium 8.6 8.5-10.1 mg/dL Total Bilirubin 0.3 # 0.2-1.0 mg/dL Aspartate Amino Transf (AST/SGOT) 15 10-37 U/L Alanine Aminotransferase (ALT/SGPT) 16 # 12-78 U/L Alkaline Phosphatase 306 H 50-136 U/L Total Protein 7.2 6.0-8.3 g/dL Albumin 3.0 L 3.5-5.0 g/dL Phosphorus Level 5.4 H 2.5-4.9 mg/dL Iron Level 31 L 50-170 mcg/dL Total Iron Binding Capacity 174 L 250-450 mcg/dL Percent Iron Saturation 17.8 L 22-44 % Hepatitis B Surface Antigen. Non-Reactive Nonreactive Hepatitis B Surface Antibody. Positive Reactive Hepatitis B Core Total Antibody. Non-Reactive Nonreactive Hepatitis C Antibody Non-Reactive Nonreactive ASSESSMENT: Suspect chest wall abscess. Leukocytosis POA, resolving. Diabetes mellitus. End-stage renal disease, on dialysis. PLAN: Discontinue aztreonam. Start Meropenem1 g IV Q 24 hours. Continue GI prophylaxis. Continue pain management. Continue dialysis per Nephrology recommendations. We will follow up on final cultures results. Case management evaluation for referral to [facility] for outpatient IV antibiotics times 14 days. Pres[address] was [address]. Place midline. This case was reviewed and discussed with my supervising physician Dr. Maria and the above assessment and plan was formulated and agreed upon. ATTESTATION BY PHYSICIAN I have seen and examined the patient. I reviewed the documentation, medical decision making, and treatment plan as noted by the mid-level provider above. I agree with the findings and plan of care. PRISCILLA MARIA MD, MIRTA L [facility] Jul 28, 2025 11:29
[2025-07-28] MEDS ORDERED: PHARMACY COMMUNICATION MISC SCH (11:30)
[2025-07-28] MEDS: MEROPENEM 1GM 1 GM VIAL IVPB SCH (14:09)
--- NOTE | 2025-07-28 17:46 | PN ---
[facility] PROGRESS NOTE Date of Service: Jul 28, 2025 Time of Service: 17:46 SUBJECTIVE: This is a 55-year-old Mongolian speaking female with past medical history of diabetes type 2, hypertension, hyperlipidemia, coronary artery disease with CABG x2 and end stage renal disease on hemodialysis who presents to the ED for complaints of swelling and tenderness on chest incision site started ye sterday.Patient reports she had a CABG x2 on 01/2025 at [facility] [place] and developed complications she said for which she underwent 5 subsequent surgeries post CABG at [facility].Patient reports throbbing pain on the incisional site when coughing which started yesterday and getting worse today so daughter decided to bring her to this facility for evaluation. Seen and examined patient in the ER awake,alert and coherent,appears comfortable.Patient denies palpitation,shortness of breath, fever,chills ,nausea and vomiting.Lates V/S T98.2, heart rate 80, blood pressure 141/87 saturation 98% on room air. Labs: WBC 12 with negative left shift of neutrophils 79, hemoglobin 9, hematocrit 32, platelet count 563. Sodium 132, chloride 96, BUN 38, creatinine 5.6, GFR eight random glucose [address] chest without contrast result revealed loculated left pleural empyema measuring up to approximately 2.7 cm in thickness associated subpleural scarring and compressive atelectasis of adjacent lung parenchyma. Marked cardiomegaly with enlarged main pulmonary artery measuring 3.2 cm compatible with pulmonary arterial hypertens ion in the appropriate clinical setting. Postoperative sternotomy with failure of sternal fixation and wide diastasis of the sternal halves with a large intersternal fluid collection measuring approximately 0.2 x 4.3 x 12.3 cm occupying the sternal gap, Bentyl flap transposition into the defect is noted in keeping with prior reconstructive surgery. Appearance is concerning for po stoperative intersternal collection, superimposed infection can not be excluded on this noncontrast study. Hepatomegaly with diffuse hepatic steatosis in the visualized upper abdomen. 07/26/2025: Patient was seen and evaluated bedside in ED room 3. She is awake, alert, and oriented x3. Patient denied any significant complaints today. She inquired about her diagnosis and was informed that imaging shows a chest wall fluid collection consistent with a chest wall abscess which does not appear drainable at this time as per radiology. Given concern for her post CABG chest wall abscess, Infectious diseases and Cardiothoracic surgery have been consulted for further evaluation and management recommendations. Vitals signs are notable for hypertension with a blood pressure of 176/82. She will be getting dialyzed today. Patient is afebrile, heart rate in the 80s, respiratory rate stable, and oxygen saturation 97% on room air. Patient remains clinically stable. The plan is to continue monitoring and follow recommendations from Infectious diseases and Cardiothoracic surgery. 07/27: Patient was seen and evaluated bedside in room 324. She is awake, alert, and oriented 3. Nursing staff reports no acute events overnight. Patient states that she no longer has chest pain, including pain at the incision site. Cardiothoracic Surgery evaluated the patient and recommended a CT scan with contrast; however, the patient declined contrast administration due to concerns about kidney function. Infectious Disease evaluated the patient and recommended continuation of current antimicrobial therapy. Patient is currently on aztreonam (Day 2). Patient remains hemodynamically stable. In the afternoon, blood pressure increased to [id number] systolic. Rechecking blood pressure 30 minutes later revealed a blood pressure in 170s. We will administer labetalol if systo lic BP remains >180 mmHg. Plan is to continue close monitoring and follow recommendations from Infectious Disease and Cardiothoracic Surgery. 07/28: Patient was seen and evaluated bedside in room 324. She was awake, alert, and oriented 3 and appeared to be in no acute distress. Patients was present during the visit and was updated on her condition and plan of care. Cardiothoracic Surgery evaluated the patient and recommended discharge with outpatient follow-up with Plastic Surgery for further evaluation of her fluid collection. Infectious Disease evaluated the patient and initiated meropenem, with discontinuation of aztreonam today. Infectious Disease recommends outpatient IV antibiotic therapy, and case management is currently working on placement to facilitate this plan. Patient remains hemodynamically stable, though blood pressures remain elevated, with systolic readings in the 170s. Further blood pressure management will be addressed as appropriate. REVIEW OF SYSTEMS CONSTITUTIONAL: Denies fevers, chills, or night sweats. No unintentional weight loss reported. NEUROLOGICAL: Denies headache, amaurosis fugax, motor weakness, sensory deficit, vertigo/spinning sensation, gait abnormalities, or tremors. ENT: No hearing loss, otalgia, otorrhea, rhinitis, rhinorrhea, hoarseness, or so re throat. CARDIOVASCULAR: Denies dyspnea on exertion, orthopnea, paroxysmal nocturnal dyspnea, palpitations, life-threatening arrhythmias, claudication. PULMONARY: Denies any shortness of breath, cough, phlegm/sputum, hemoptysis, pleuritic chest pain. SLEEP: Denies morning headaches, daytime somnolence or napping. Denies difficulty falling asleep, staying asleep, waking from sleep. Denies knowledge of snoring. GASTROINTESTINAL: Denies any type of dysphagia to either liquids or solids. Denies nausea, vomiting, pyrosis, early satiety, abdominal pain, diarrhea, constipation, or changes in stool consistency or caliber. Denies coffee-ground emesis, hematemesis, hematochezia, or melanotic stools. GENITOURINARY: Denies frequency, urgency, nocturia, hematuria or incontinence (Storage/Irritative symptoms.) Low urinary stream, straining to void, urinary intermittency or hesitancy, splitting of the voiding stream, terminal dribbling. ENDOCRINOLOGIC: Denies polyuria, polydipsia, polyphagia or heat/cold intolerances. HEMATOLOGIC: Denies thrombophilia/previous clots, or coagulopathy/bleeding disorders. ONCOLOGIC: Denies personal history of malignancy. DERMATOLOGIC: Denies rashes or pruritus. PSYCHIATRIC: Denies any suicidal or homicidal ideation. Denies hallucinations. PHYSICAL EXAM GENERAL APPEARANCE: The patient is awake, alert, and oriented, in no acute cardiopulmonary distress. NEUROLOGICAL: Cranial nerves II-XII grossly intact. Motor is 5/5 in bilateral upper and lower extremities proximal to distal. No sensory deficits. HEENT: Face is symmetric. Pupils are equal and reactive. Extraocular movements are intact. NECK: Supple. No JVD. No thyromegaly. No submental, submandibular, pre- /postauricular, occipital or supraclavicular lymphadenopathy. CHEST: Normal chest expansion. No Telemetry. LUNGS: Absence of any rales, rhonchi or any wheezing. CARDIOVASCULAR: Regular. S1 and S2 normal. No appreciable rubs, murmurs or gallops. ABDOMEN: Soft, nontender, and nondistended. There is no rebound, voluntary guarding, or rigidity. : Deferred. No Edouard. EXTREMITIES: Non-edematous and not cyanotic. No clubbing. Good capillary refill. SKIN: No skin breakdown. Vital Signs (last 8hr) Date Time Temp Pulse Resp B/P (MAP) Pulse Ox O2 Delivery O2 Flow Rate FiO2 07/28/25 12:20 98.1 81 18 179/88 Room Air 07/28/25 12:00 98.1 82 16 162/84 Room Air 07/28/25 12:00 98.1 80 19 182/86 98 Room Air 07/28/25 11:45 79 16 179/85 Room Air 07/28/25 11:30 83 16 179/89 Room Air 07/28/25 11:15 81 16 182/84 Room Air 07/28/25 11:00 80 16 182/86 Room Air 07/28/25 10:45 82 18 183/86 Room Air 07/28/25 10:30 83 18 167/81 Room Air 07/28/25 10:15 85 18 160/76 Room Air 07/28/25 10:00 83 18 160/81 Room Air LABS: Laboratory: Test 07/28/25 16:02 07/28/25 04:46 07/27/25 05:07 Range/Units Whole Blood Glucose 231 #H 70-110 MG/DL White Blood Count 11.8 H 4.8-10.8 K/uL Red Blood Count 3.50 L 4.00-5.50 MIL/uL Hemoglobin 9.6 L 12.0-16.0 g/dL Hematocrit 30.8 L 36-48 % Mean Corpuscular Volume 88.0 79-99 fL Mean Corpuscular Hemoglobin 27.4 27.0-33.0 pg Mean Corpuscular Hemoglobin Concent 31.2 L 32.0-36.0 g/dL Red Cell Distribution Width 18.2 H 11.0-15.5 % Platelet Count 489 H 130-400 K/uL Mean Platelet Volume 9.5 7.5-10.5 fL Immature Granulocyte % (Auto) 0.5 0-1 % Neutrophils (%) (Auto) 71.5 40.0-77.0 % Lymphocytes (%) (Auto) 15.8 L 21.0-51.0 % Monocytes (%) (Auto) 8.1 3.0-13.0 % Eosinophils (%) (Auto) 3.3 0.0-8.0 % Basophils (%) (Auto) 0.8 0.0-5.0 % Neutrophils # (Auto) 8.4 H 1.8-7.7 K/uL Lymphocytes # (Auto) 1.9 1.0-4.8 K/uL Monocytes # (Auto) 1.0 0.1-1.0 K/uL Eosinophils # (Auto) 0.39 0.00-0.70 K/uL Basophils # (Auto) 0.10 0.00-0.20 K/uL Absolute Immature Granulocyte (auto 0.06 0-1 K/uL Nucleated Red Blood Cells 0.0 0.0-0.19 % Sodium Level 129 L 136-145 mmol/L Potassium Level 4.7 3.5-5.1 mmol/L Chloride Level 91 L 101-111 mmol/L Carbon Dioxide Level 25 21-32 mmol/L Blood Urea Nitrogen 62 #H 7-18 mg/dL Creatinine 6.7 H 0.5-1.0 mg/dL Glomerular Filtration Rate Calc 7 >90 mL/min Random Glucose 158 H 70-105 mg/dL Total Calcium 8.6 8.5-10.1 mg/dL Total Bilirubin 0.3 # 0.2-1.0 mg/dL Aspartate Amino Transf (AST/SGOT) 15 10-37 U/L Alanine Aminotransferase (ALT/SGPT) 16 # 12-78 U/L Alkaline Phosphatase 306 H 50-136 U/L Total Protein 7.2 6.0-8.3 g/dL Albumin 3.0 L 3.5-5.0 g/dL Phosphorus Level 5.4 H 2.5-4.9 mg/dL Iron Level 31 L 50-170 mcg/dL Total Iron Binding Capacity 174 L 250-450 mcg/dL Percent Iron Saturation 17.8 L 22-44 % Current Medications Medications (Trade) Dose Ordered Sig/Ryan Route PRN Reason Start Time Stop Time Status Last Admin Dose Admin Apixaban (EliquIS) 5 mg BID PO 07/26/25 21:00 08/25/25 20:59 07/27/25 20:38 5 MG Aspirin (Aspirin 81mg Chew Tab) 81 mg DAILY PO 07/27/25 09:00 08/26/25 08:59 07/27/25 10:20 81 MG Atorvastatin Calcium (LIPItor 40MG) 40 mg HS PO 07/26/25 21:00 08/25/25 20:59 07/27/25 20:40 40 MG Aztreonam 0.5 gm/ Sodium Chloride 50 ml @ 100 mls/hr Q8H IVPB 07/26/25 06:00 07/28/25 11:25 DC 07/28/25 06:06 100 MLS/HR Clopidogrel Bisulfate (plaVIX 75MG) 75 mg DAILY PO 07/27/25 09:00 08/26/25 08:59 07/27/25 10:22 75 MG Dextrose (D50w) 50 ml AD PRN IV HYPOGLYCEMIA PROTOCOL 07/25/25 20:30 08/24/25 20:29 Epoetin Carl-epbx (Retacrit) 10,000 unit QMOWEFR[DIALYSIS] SQ 07/26/25 16:00 08/25/25 15:59 07/28/25 16:47 10,000 UNIT Famotidine (Pepcid 20mg Tab) 20 mg Q48H PO 07/25/25 21:00 07/27/25 10:45 DC 07/25/25 22:44 20 MG Famotidine (Pepcid 20mg Tab) 20 mg Q48H PO 07/27/25 21:00 08/26/25 20:59 07/27/25 20:40 20 MG Gabapentin (NEURontin 100 mg CAP) 100 mg TID PO 07/26/25 14:00 08/25/25 13:59 07/28/25 14:10 100 MG Glucagon (Glucagon 1mg Kit) 1 mg AD PRN IM HYPOGLYCEMIA PROTOCOL 07/25/25 20:30 08/24/25 20:29 Hydralazine HCl (APRESOLine 20MG INJ) 10 mg Q6H PRN IV ADMINISTER FOR SBP > 180 07/27/25 12:30 08/26/25 12:29 Hydralazine HCl (APRESOLine 20MG INJ) 20 mg Q6H PRN IV ADMINISTER FOR SBP > 180 07/27/25 12:30 07/27/25 12:25 DC Insulin Human Regular (humuLIN R 100 UNIT/ML 3ML) INSULIN SLIDING SCAL... ACHS SQ 07/25/25 21:00 08/24/25 20:59 07/28/25 17:10 4 UNIT Labetalol HCl (TRANdate 20MG SYG) 10 mg Q6H PRN IV IF SBP GREATER THAN 180 07/27/25 13:30 08/26/25 13:29 Meropenem (Merrem 1gm) 1 gm Q24H IVPB 07/28/25 12:00 08/07/25 11:59 07/28/25 14:09 1 GM Meropenem (Merrem 1gm) 1 gm Q8H IVPB 07/25/25 21:30 07/25/25 21:14 DC Meropenem (Merrem 500mg) 500 mg Q24H IVPB 07/25/25 21:30 07/25/25 22:02 DC Metoclopramide HCl (regLAN 5 MG TAB) 5 mg TID PO 07/26/25 14:00 08/25/25 13:59 07/28/25 14:10 5 MG Metoprolol Tartrate (loprESSOR) 12.5 mg BID PO 07/27/25 21:00 08/26/25 20:59 07/28/25 11:45 12.5 MG Metoprolol Tartrate (loprESSOR) 25 mg BID PO 07/26/25 21:00 07/27/25 11:58 DC 07/26/25 20:58 25 MG Nifedipine (adALAT 30MG) 30 mg DAILY PO 07/27/25 09:00 08/26/25 08:59 07/28/25 11:45 30 MG Ondansetron HCl (zoFRAN 4MG INJ) 4 mg Q6H PRN IVP NAUSEA/VOMITING 07/26/25 06:00 08/25/25 05:59 07/26/25 05:49 4 MG Pharmacy Profile Note (Pharmacy Communication) 1 each ONCE MISC 07/28/25 11:30 07/28/25 11:45 DC Sevelamer HCl (RENAgel 800 MG TAB) 800 mg TIDMEALS PO 07/27/25 12:00 08/26/25 11:59 07/28/25 16:47 800 MG Simethicone (Mylicon) 80 mg PCHS PRN PO GI GAS 07/27/25 11:00 08/26/25 10:59 07/28/25 11:49 80 MG Sodium Chloride 1,000 ml @ 0 mls/hr ONCE IV 07/26/25 11:00 08/25/25 10:59 07/28/25 11:59 100 MLS/HR Vitamin B Complex/ Vit C/Folic Acid (Nephrovite Tablet) 1 cap DAILY PO 07/27/25 09:00 08/26/25 08:59 07/27/25 10:22 1 CAP DIAGNOSTICS / RADIOLOGY: [ ] ASSESSMENT: Chest wall abscess with recent CABG/ post operative sternotomy with failure sternal fixation with fluid collection per CT POA 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 * Follow up chest ultrasound (07/25/2025) demonstrated localized fluid collections within the sternal gap between the sternal halves at the midline anterior chest wall, measuring 1.7 x 1.6 x 2.2 And 1.9 x 0.7 x 2.1 cm. * Wound cultures from previous visit did not grow any organism. * Aerobic and anaerobic cultures will be done from the wound, follow up. * Cardiothoracic surgery and Infectious diseases consulted, we will follow their recommendations. * Cardiothoracic surgery recommended outpatient follow up with Plastic surgery. * Discontinue aztreonam (day 2) and start Vancomycin (Day 0). * We will order CRP and follow up. * Continue to monitor clinically and with serial labs. End-stage renal disease dependent on hemodialysis: * Patient has a end-stage renal disease with hemodialysis scheduled on Saturday. * Nephrology consulted, pending recommendations. * Patient received her dialysis Saturday as scheduled (predialysis creatinine at 6.3). * I&O: -8000 ml (HD fluid) today. Anemia, POA: * Patient's hemoglobin on admission at 9.7, and 9.5 today. * Suspected due to history of end-stage renal disease. * Iron panel revealed a serum iron of 31, TIBC of 174, transferrin saturation of 17.8 And the patient was started on IV Venofer. * Continue erythropoietin with dialysis. * Transfuse 1 unit PRBC if Hb less than 7. Hypertension, hyperlipidemia, and diabetes mellitus type 2: * Resume home medications for hypertension, and hyperlipidemia. * Patient placed on an insulin sliding scale. * Continue to monitor DVT prophylaxis with Eliquis 5 mg b.i.d.. GI prophylaxis with Pepcid 20 mg ATTESTATION BY PHYSICIAN I have seen and examined the patient. I reviewed the documentation, medical decision making, and treatment plan as noted by the resident physician above. I agree with the findings and plan of care. DEEPALI SU MD, HEMA MD Jul 28, 2025 17:46
--- NOTE | 2025-07-28 21:49 | PN ---
DIALYSIS NOTE SUBJECTIVE: The patient was seen and evaluated on hemodialysis, prescription noted. PHYSICAL EXAMINATION: VITAL SIGNS: Blood pressure 170/80. CARDIOVASCULAR: Regular. LUNGS: Coarse. IMPRESSION: End-stage renal disease. PLAN: The patient will continue with maximum ultrafiltration if blood pressure allows. Once the patient is discharged, the patient can follow up at the dialysis unit. TID: [id number] RECEIPT: [id number]
[2025-07-29] VITALS (9 sets, daily range): BP systolic 130–168; BP diastolic 61–89; PULSE 76–84; RESP 18–19; TEMP 97.5–98.3; O2SAT 95–98
[2025-07-29 06:03] LABS: IMMATURE GRANULOCYTE ABSOLUTE 0.06 K/uL (0-1); NUCLEATED RED BLOOD CELLS 0.0 % (0.0-0.19); PLATELET COUNT (AUTO) 507 K/uL (130-400); RED BLOOD CELL COUNT(AUTO) 3.69 MIL/uL (4.00-5.50); RED CELL DISTRIBUTION WIDTH 18.3 % (11.0-15.5); WHITE BLOOD COUNT (AUTO) 10.7 K/uL (4.8-10.8)
[2025-07-29 06:26] LABS: ASPARTATE AMINOTRANSFERASE 16.0 U/L (10-37); CREATININE 5.4 mg/dL (0.5-1.0); GLOMERULAR FILTR. RATE CALC 9.0 mL/min (>90); GLUCOSE,RANDOM 115.0 mg/dL (70-105); SODIUM SERUM 135.0 mmol/L (136-145); TOTAL PROTEIN, SERUM 7.6 g/dL (6.0-8.3); UREA NITROGEN, BLOOD 45.0 mg/dL (7-18)
--- NOTE | 2025-07-29 11:06 | PN ---
Followup Progress Note SUBJECTIVE: A 55-year-old female with a history of diabetes mellitus and hypertension. She has a history of known coronary artery disease, status post CABG in the past. The patient presented to the hospital with significant wound to the sternum. The patient was started on broad spectrum IV antibiotics. She has a history of end-stage renal disease on dialysis three times per week and the patient is being seen as a followup visit for all of the above. REVIEW OF SYSTEMS: GENERAL: She is feeling improved. HEENT: No change in vision. No change in hearing. CARDIOVASCULAR: No current chest pain or palpitations. PULMONARY: She denies any shortness of breath. GASTROINTESTINAL: She is tolerating a diet. MUSCULOSKELETAL: Complains of weakness. PHYSICAL EXAMINATION: VITAL SIGNS: Blood pressure 152/77, pulse 80. GENERAL: A chronically ill female, much older than appearing. HEENT: Head is atraumatic. Pupils are equal, round, and reactive to light. Oropharynx is without exudate. Nares are clear. NECK: There is no JVP. There is no thyromegaly, no masses. CARDIOVASCULAR: Regular. There is no S3 or S4 gallop. LUNGS: Coarse with equal thoracic movement. ABDOMEN: Soft. Nondistended, nontender. EXTREMITIES: Reveal no clubbing or cyanosis. NEUROLOGICAL: She is awake, she is alert. LABORATORY DATA: Hemoglobin 10, hematocrit 32, white cell count is 10,000. BUN 45, creatinine 5. IMPRESSION: * Sternal wound. * Diabetes mellitus. * Hypertension. * End-stage renal disease. PLAN: The patient continues with the antibiotics as prescribed. The patient is being seen by case management for outpatient IV antibiotics. She continues dialysis on a Saturday, Saturday, and Saturday schedule. Blood pressure is under adequate control. The patient remains on Epogen for the anemia. We will follow closely. TID: [id number] RECEIPT: [id number]
--- NOTE | 2025-07-29 16:16 | PN ---
[facility] PROGRESS NOTE Date of Service: Jul 29, 2025 Time of Service: 16:13 SUBJECTIVE: This is a 55-year-old [place]er speaking female with past medical history of diabetes type 2, hypertension, hyperlipidemia, coronary artery disease with CABG x2 and end stage renal disease on hemodialysis who presents to the ED for complaints of swelling and tenderness on chest incision site started ye sterday.Patient reports she had [place]2 [place]20[place] [facility] and developed complications she said for which she underwent 5 subsequent surgeries post CABG at [facility].Patient reports throbbing pain on the incisional site when coughing which started yesterday and getting worse today so daughter decided to bring her to this facility for evaluation. Seen and examined patient in the ER awake,alert and coherent,appears comfortable.Patient denies palpitation,shortness of breath, fever,chills ,nausea and vomiting.Lates V/S T98.2, heart rate 80, blood pressure 141/87 saturation 98% on room air. Labs: WBC 12 with negative left shift of neutrophils 79, hemoglobin 9, hematocrit 32, platelet count 563. Sodium 132, chloride 96, BUN 38, creatinine 5.6, GFR eight random glucose [address] chest without contrast result revealed loculated left pleural empyema measuring up to approximately 2.7 cm in thickness associated subpleural scarring and compressive atelectasis of adjacent lung parenchyma. Marked cardiomegaly with enlarged main pulmonary artery measuring 3.2 cm compatible with pulmonary arterial hypertens ion in the appropriate clinical setting. Postoperative sternotomy with failure of sternal fixation and wide diastasis of the sternal halves with a large intersternal fluid collection measuring approximately 0.2 x 4.3 x 12.3 cm occupying the sternal gap, Bentyl flap transposition into the defect is noted in keeping with prior reconstructive surgery. Appearance is concerning for po stoperative intersternal collection, superimposed infection can not be excluded on this noncontrast study. Hepatomegaly with diffuse hepatic steatosis in the visualized upper abdomen. 07/26/2025: Patient was seen and evaluated bedside in ED room 3. She is awake, alert, and oriented x3. Patient denied any significant complaints today. She inquired about her diagnosis and was informed that imaging shows a chest wall fluid collection consistent with a chest wall abscess which does not appear drainable at this time as per radiology. Given concern for her post CABG chest wall abscess, Infectious diseases and Cardiothoracic surgery have been consulted for further evaluation and management recommendations. Vitals signs are notable for hypertension with a blood pressure of 176/82. She will be getting dialyzed today. Patient is afebrile, heart rate in the 80s, respiratory rate stable, and oxygen saturation 97% on room air. Patient remains clinically stable. The plan is to continue monitoring and follow recommendations from Infectious diseases and Cardiothoracic surgery. 07/27: Patient was seen and evaluated bedside in room 324. She is awake, alert, and oriented 3. Nursing staff reports no acute events overnight. Patient states that she no longer has chest pain, including pain at the incision site. Cardiothoracic Surgery evaluated the patient and recommended a CT scan with contrast; however, the patient declined contrast administration due to concerns about kidney function. Infectious Disease evaluated the patient and recommended continuation of current antimicrobial therapy. Patient is currently on aztreonam (Day 2). Patient remains hemodynamically stable. In the afternoon, blood pressure increased to [id number] systolic. Rechecking blood pressure 30 minutes later revealed a blood pressure in 170s. We will administer labetalol if systo lic BP remains >180 mmHg. Plan is to continue close monitoring and follow recommendations from Infectious Disease and Cardiothoracic Surgery. 07/28: Patient was seen and evaluated bedside in room 324. She was awake, alert, and oriented 3 and appeared to be in no acute distress. Patients was present during the visit and was updated on her condition and plan of care. Cardiothoracic Surgery evaluated the patient and recommended discharge with outpatient follow-up with Plastic Surgery for further evaluation of her fluid collection. Infectious Disease evaluated the patient and initiated meropenem, with discontinuation of aztreonam today. Infectious Disease recommends outpatient IV antibiotic therapy, and case management is currently working on placement to facilitate this plan. Patient remains hemodynamically stable, though blood pressures remain elevated, with systolic readings in the 170s. Further blood pressure management will be addressed as appropriate. 07/29/25: Patient was seen and evaluated bedside in room 324. She was awake, alert, and oriented x3 during the visit. Patient denied any chest pain and shortness of breaths. Infectious diseases evaluated the patient and recommended continuation of IV meropenem, with plans for outpatient IV antibiotic therapy. Case management is actively working on arranging placement at [facility] to facilitate outpatient administration of IV antibiotics. The patient remains clinically stable. Vital signs are notable for elevated blood pressure at 158 systolic with a heart rate of 80. Otherwise she is doing well. Plan is to continue following Infectious diseases and Cardiothoracic surgery recommendations and coordinate discharge planning was outpatient antibiotic therapies approved. REVIEW OF SYSTEMS CONSTITUTIONAL: Denies fevers, chills, or night sweats. No unintentional weight loss reported. NEUROLOGICAL: Denies headache, amaurosis fugax, motor weakness, sensory d eficit, vertigo/spinning sensation, gait abnormalities, or tremors. ENT: No hearing loss, otalgia, otorrhea, rhinitis, rhinorrhea, hoarseness, or sore throat. CARDIOVASCULAR: Denies dyspnea on exertion, orthopnea, paroxysmal nocturnal dyspnea, palpitations, life-threatening arrhythmias, claudication. PULMONARY: Denies any shortness of breath, cough, phlegm/sputum, hemoptysis, pleuritic chest pain. SLEEP: Denies morning headaches, daytime somnolence or napping. Denies difficulty falling asleep, staying asleep, waking from sleep. Denies knowledge of snoring. GASTROINTESTINAL: Denies any type of dysphagia to either liquids or solids. Denies nausea, vomiting, pyrosis, early satiety, abdominal pain, diarrhea, constipation, or changes in stool consistency or caliber. Denies coffee-ground emesis, hematemesis, hematochezia, or melanotic stools. GENITOURINARY: Denies frequency, urgency, nocturia, hematuria or incontinence (Storage/Irritative symptoms.) Low urinary stream, straining to void, urinary intermittency or hesitancy, splitting of the voiding stream, terminal dribbling. ENDOCRINOLOGIC: Denies polyuria, polydipsia, polyphagia or heat/cold intolerances. HEMATOLOGIC: Denies thrombophilia/previous clots, or coagulopathy/bleeding disorders. ONCOLOGIC: Denies personal history of malignancy. DERMATOLOGIC: Denies rashes or pruritus. PSYCHIATRIC: Denies any suicidal or homicidal ideation. Denies hallucinations. PHYSICAL EXAM GENERAL APPEARANCE: The patient is awake, alert, and oriented, in no acute cardiopulmonary distress. NEUROLOGICAL: Cranial nerves II-XII grossly intact. Motor is 5/5 in bilateral upper and lower extremities proximal to distal. No sensory deficits. HEENT: Face is symmetric. Pupils are equal and reactive. Extraocular movements are intact. NECK: Supple. No JVD. No thyromegaly. No submental, submandibular, pre- /postauricular, occipital or supraclavicular lymphadenopathy. CHEST: Normal chest expansion. No Telemetry. LUNGS: Absence of any rales, rhonchi or any wheezing. CARDIOVASCULAR: Regular. S1 and S2 normal. No appreciable rubs, murmurs or gallops. ABDOMEN: Soft, nontender, and nondistended. There is no rebound, voluntary guarding, or rigidity. : Deferred. No Edouard. EXTREMITIES: Non-edematous and not cyanotic. No clubbing. Good capillary refill. SKIN: No skin breakdown. Vital Signs (last 8hr) Date Time Temp Pulse Resp B/P (MAP) Pulse Ox O2 Delivery O2 Flow Rate FiO2 07/29/25 12:00 97.9 80 18 158/85 97 Room Air LABS: Laboratory: Test 07/29/25 13:42 07/29/25 05:33 Range/Units Whole Blood Glucose 231 #H 70-110 MG/DL White Blood Count 10.7 4.8-10.8 K/uL Red Blood Count 3.69 L 4.00-5.50 MIL/uL Hemoglobin 10.0 L 12.0-16.0 g/dL Hematocrit 32.4 L 36-48 % Mean Corpuscular Volume 87.8 79-99 fL Mean Corpuscular Hemoglobin 27.1 27.0-33.0 pg Mean Corpuscular Hemoglobin Concent 30.9 L 32.0-36.0 g/dL Red Cell Distribution Width 18.3 H 11.0-15.5 % Platelet Count 507 H 130-400 K/uL Mean Platelet Volume 9.3 7.5-10.5 fL Immature Granulocyte % (Auto) 0.6 0-1 % Neutrophils (%) (Auto) 70.3 40.0-77.0 % Lymphocytes (%) (Auto) 15.0 L 21.0-51.0 % Monocytes (%) (Auto) 9.9 3.0-13.0 % Eosinophils (%) (Auto) 3.5 0.0-8.0 % Basophils (%) (Auto) 0.7 0.0-5.0 % Neutrophils # (Auto) 7.6 1.8-7.7 K/uL Lymphocytes # (Auto) 1.6 1.0-4.8 K/uL Monocytes # (Auto) 1.1 H 0.1-1.0 K/uL Eosinophils # (Auto) 0.37 0.00-0.70 K/uL Basophils # (Auto) 0.07 0.00-0.20 K/uL Absolute Immature Granulocyte (auto 0.06 0-1 K/uL Nucleated Red Blood Cells 0.0 0.0-0.19 % Sodium Level 135 L 136-145 mmol/L Potassium Level 4.2 3.5-5.1 mmol/L Chloride Level 95 L 101-111 mmol/L Carbon Dioxide Level 29 21-32 mmol/L Blood Urea Nitrogen 45 H 7-18 mg/dL Creatinine 5.4 H 0.5-1.0 mg/dL Glomerular Filtration Rate Calc 9 >90 mL/min Random Glucose 115 H 70-105 mg/dL Total Calcium 9.0 8.5-10.1 mg/dL Total Bilirubin 0.4 0.2-1.0 mg/dL Aspartate Amino Transf (AST/SGOT) 16 10-37 U/L Alanine Aminotransferase (ALT/SGPT) 17 12-78 U/L Alkaline Phosphatase 336 H 50-136 U/L C-Reactive Protein, Quantitative 5.60 H 0.5-3.0 mg/L Total Protein 7.6 6.0-8.3 g/dL Albumin 3.2 L 3.5-5.0 g/dL Current Medications Medications (Trade) Dose Ordered Sig/Ryan Route PRN Reason Start Time Stop Time Status Last Admin Dose Admin Apixaban (EliquIS) 5 mg BID PO 07/26/25 21:00 08/25/25 20:59 07/29/25 09:21 5 MG Aspirin (Aspirin 81mg Chew Tab) 81 mg DAILY PO 07/27/25 09:00 08/26/25 08:59 07/29/25 09:21 81 MG Atorvastatin Calcium (LIPItor 40MG) 40 mg HS PO 07/26/25 21:00 08/25/25 20:59 07/28/25 21:02 40 MG Aztreonam 0.5 gm/ Sodium Chloride 50 ml @ 100 mls/hr Q8H IVPB 07/26/25 06:00 07/28/25 11:25 DC 07/28/25 06:06 100 MLS/HR Clopidogrel Bisulfate (plaVIX 75MG) 75 mg DAILY PO 07/27/25 09:00 08/26/25 08:59 07/29/25 09:20 75 MG Dextrose (D50w) 50 ml AD PRN IV HYPOGLYCEMIA PROTOCOL 07/25/25 20:30 08/24/25 20:29 Epoetin Carl-epbx (Retacrit) 10,000 unit QMOWEFR[DIALYSIS] SQ 07/26/25 16:00 08/25/25 15:59 07/28/25 16:47 10,000 UNIT Famotidine (Pepcid 20mg Tab) 20 mg Q48H PO 07/25/25 21:00 07/27/25 10:45 DC 07/25/25 22:44 20 MG Famotidine (Pepcid 20mg Tab) 20 mg Q48H PO 07/27/25 21:00 08/26/25 20:59 07/27/25 20:40 20 MG Gabapentin (NEURontin 100 mg CAP) 100 mg TID PO 07/26/25 14:00 08/25/25 13:59 07/29/25 14:12 100 MG Glucagon (Glucagon 1mg Kit) 1 mg AD PRN IM HYPOGLYCEMIA PROTOCOL 07/25/25 20:30 08/24/25 20:29 Hydralazine HCl (APRESOLine 20MG INJ) 10 mg Q6H PRN IV ADMINISTER FOR SBP > 180 07/27/25 12:30 08/26/25 12:29 Hydralazine HCl (APRESOLine 20MG INJ) 20 mg Q6H PRN IV ADMINISTER FOR SBP > 180 07/27/25 12:30 07/27/25 12:25 DC Insulin Human Regular (humuLIN R 100 UNIT/ML 3ML) INSULIN SLIDING SCAL... ACHS SQ 07/25/25 21:00 08/24/25 20:59 07/29/25 14:17 4 UNIT Labetalol HCl (TRANdate 20MG SYG) 10 mg Q6H PRN IV IF SBP GREATER THAN 180 07/27/25 13:30 08/26/25 13:29 Meropenem (Merrem 1gm) 1 gm Q24H IVPB 07/28/25 12:00 08/07/25 11:59 07/29/25 12:39 1 GM Meropenem (Merrem 1gm) 1 gm Q8H IVPB 07/25/25 21:30 07/25/25 21:14 DC Meropenem (Merrem 500mg) 500 mg Q24H IVPB 07/25/25 21:30 07/25/25 22:02 DC Metoclopramide HCl (regLAN 5 MG TAB) 5 mg TID PO 07/26/25 14:00 08/25/25 13:59 07/29/25 14:12 5 MG Metoprolol Tartrate (loprESSOR) 12.5 mg BID PO 07/27/25 21:00 08/26/25 20:59 07/29/25 09:21 12.5 MG Metoprolol Tartrate (loprESSOR) 25 mg BID PO 07/26/25 21:00 07/27/25 11:58 DC 07/26/25 20:58 25 MG Nifedipine (adALAT 30MG) 30 mg DAILY PO 07/27/25 09:00 08/26/25 08:59 07/29/25 09:21 30 MG Ondansetron HCl (zoFRAN 4MG INJ) 4 mg Q6H PRN IVP NAUSEA/VOMITING 07/26/25 06:00 08/25/25 05:59 07/26/25 05:49 4 MG Pharmacy Profile Note (Pharmacy Communication) 1 each ONCE MISC 07/28/25 11:30 07/28/25 11:45 DC Sevelamer HCl (RENAgel 800 MG TAB) 800 mg TIDMEALS PO 07/27/25 12:00 08/26/25 11:59 07/29/25 12:39 800 MG Simethicone (Mylicon) 80 mg PCHS PRN PO GI GAS 07/27/25 11:00 08/26/25 10:59 07/29/25 09:26 80 MG Sodium Chloride 1,000 ml @ 0 mls/hr ONCE IV 07/26/25 11:00 08/25/25 10:59 07/28/25 11:59 100 MLS/HR Vitamin B Complex/ Vit C/Folic Acid (Nephrovite Tablet) 1 cap DAILY PO 07/27/25 09:00 08/26/25 08:59 07/29/25 09:21 1 CAP DIAGNOSTICS / RADIOLOGY: [ ] ASSESSMENT: Chest wall abscess with recent CABG/ post operative sternotomy with failure st ernal fixation with fluid collection per CT POA 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 * Follow up chest ultrasound (07/25/2025) demonstrated localized fluid collections within the sternal gap between the sternal halves at the midline anterior chest wall, measuring 1.7 x 1.6 x 2.2 And 1.9 x 0.7 x 2.1 cm. * Wound cultures from previous visit did not grow any organism. * Aerobic and anaerobic cultures will be done from the wound, follow up. * Cardiothoracic surgery and Infectious diseases consulted, we will follow their recommendations. * Cardiothoracic surgery recommended outpatient follow up with Plastic surgery. * Continue Meropenem (Day 1). * We will order CRP and follow up. * Continue to monitor clinically and with serial labs. End-stage renal disease dependent on hemodialysis: * Patient has a end-stage renal disease with hemodialysis scheduled on Saturday. * Nephrology consulted, pending recommendations. * Patient received her dialysis Saturday as scheduled (predialysis creatinine at 6.3). * I&O: -8000 ml (HD fluid) yesterday. Anemia, POA: * Patient's hemoglobin on admission at 9.7, and 9.5 today. * Suspected due to history of end-stage renal disease. * Iron panel revealed a serum iron of 31, TIBC of 174, transferrin saturation of 17.8 And the patient was started on IV Venofer. * Continue erythropoietin with dialysis. * Transfuse 1 unit PRBC if Hb less than 7. Hypertension, hyperlipidemia, and diabetes mellitus type 2: * Resume home medications for hypertension, and hyperlipidemia. * Patient placed on an insulin sliding scale. * Continue to monitor DVT prophylaxis with Eliquis 5 mg b.i.d.. GI prophylaxis with Pepcid 20 mg ATTESTATION BY PHYSICIAN I have seen and examined the patient. I reviewed the documentation, medical decision making, and treatment plan as noted by the resident physician above. I agree with the findings and plan of care. DEEPALI SU MD, HEMA MD Jul 29, 2025 16:16
--- NOTE | 2025-07-29 19:24 | HMCIMG ---
EXAM CR CHEST, 1 VIEW CLINICAL HISTORY Chest discomfort TECHNIQUE Single frontal chest radiograph COMPARISON US soft tissue chest wall 07/25/2025 at 21:10 EST; CT chest without contrast 07/25/2025 at 16:28 EST; chest radiograph 01/14/2025 at 13:50 EDT FINDINGS LUNGS There is left basilar volume loss with silhouetting of the left hemidiaphragm and mild increased opacity, consistent with left basal atelectasis. Mild prominence of central pulmonary vascular markings is present, compatible with mild pulmonary vascular congestion. No focal mass or pneumothorax is seen. PLEURAL SPACES A small left pleural effusion is present. No right pleural effusion is identified. MEDIASTINUM AND HEART Cardiac size is within the upper limits of normal. Mediastinal contours are stable compared with prior imaging. CARDIAC DEVICES A leadless cardiac pacemaker projects over the expected region of the right ventricle, with no radiographic evidence of device-related complication. BONES AND SOFT TISSUES No acute osseous abnormality is identified. Visualized soft tissues are unremarkable. IMPRESSION * Left basilar atelectasis with small left pleural effusion. * Mild pulmonary vascular congestion. * Leadless pacemaker in expected right ventricular location without radiographic evidence of complication. /[place]
--- NOTE | 2025-07-29 20:03 | PN ---
INFECTIOUS DISEASE PROGRESS NOTE Date of Service: Jul 29, 2025 SUBJECTIVE: This is a 55-year-old female patient who has been seen at bedside in room 324. Patient is awake, alert and oriented x3. We will continue Meropenem1 g IV every 24 hours. Patient will be referred to [facility] for outpatient IV antibiotics for 14 days with Meropenem. PHYSICAL EXAM EYES: Anicteric. Pupils equal and reactive. HENT: No oral thrush seen, moist Oral mucosa NECK: Supple, no JVD or thyromegaly. LUNGS: Good air entry. No rales, no rhonchi. CARDIOVASCULAR: S1, S2 regular. No murmur heard. ABDOMEN: Soft, non tender, bowel sounds present. CENTRAL NERVOUS SYSTEM: Awake, alert, oriented x 3. SKIN: No rashes, no swelling. LYMPHATICS: No peripheral lymphadenopathy MUSCULOSKELETAL: No joint swelling, erythema or tenderness. EXTREMITIES: No cyanosis or clubbing. BACK: No deformity, no pressure ulcer. GENITOURINARY: No dysuria or hematuria. Vital Sign (Last 12 Hours) 07/29/25 07/29/25 12:00 16:00 Temp 97.9 97.5 Pulse 80 84 Resp 18 18 B/P (MAP) 158/85 130/89 Pulse Ox 97 98 O2 Delivery Room Air Room Air Intake & Output (last 24hrs) 07/28/25 07/28/25 07/29/25 15:00 23:00 07:00 Intake Total 240 ml Output Total 8000 ml Balance -8000 ml 240 ml LABS: Laboratory: Test 07/29/25 19:13 07/29/25 05:33 Range/Units Whole Blood Glucose 211 H 70-110 MG/DL White Blood Count 10.7 4.8-10.8 K/uL Red Blood Count 3.69 L 4.00-5.50 MIL/uL Hemoglobin 10.0 L 12.0-16.0 g/dL Hematocrit 32.4 L 36-48 % Mean Corpuscular Volume 87.8 79-99 fL Mean Corpuscular Hemoglobin 27.1 27.0-33.0 pg Mean Corpuscular Hemoglobin Concent 30.9 L 32.0-36.0 g/dL Red Cell Distribution Width 18.3 H 11.0-15.5 % Platelet Count 507 H 130-400 K/uL Mean Platelet Volume 9.3 7.5-10.5 fL Immature Granulocyte % (Auto) 0.6 0-1 % Neutrophils (%) (Auto) 70.3 40.0-77.0 % Lymphocytes (%) (Auto) 15.0 L 21.0-51.0 % Monocytes (%) (Auto) 9.9 3.0-13.0 % Eosinophils (%) (Auto) 3.5 0.0-8.0 % Basophils (%) (Auto) 0.7 0.0-5.0 % Neutrophils # (Auto) 7.6 1.8-7.7 K/uL Lymphocytes # (Auto) 1.6 1.0-4.8 K/uL Monocytes # (Auto) 1.1 H 0.1-1.0 K/uL Eosinophils # (Auto) 0.37 0.00-0.70 K/uL Basophils # (Auto) 0.07 0.00-0.20 K/uL Absolute Immature Granulocyte (auto 0.06 0-1 K/uL Nucleated Red Blood Cells 0.0 0.0-0.19 % Sodium Level 135 L 136-145 mmol/L Potassium Level 4.2 3.5-5.1 mmol/L Chloride Level 95 L 101-111 mmol/L Carbon Dioxide Level 29 21-32 mmol/L Blood Urea Nitrogen 45 H 7-18 mg/dL Creatinine 5.4 H 0.5-1.0 mg/dL Glomerular Filtration Rate Calc 9 >90 mL/min Random Glucose 115 H 70-105 mg/dL Total Calcium 9.0 8.5-10.1 mg/dL Total Bilirubin 0.4 0.2-1.0 mg/dL Aspartate Amino Transf (AST/SGOT) 16 10-37 U/L Alanine Aminotransferase (ALT/SGPT) 17 12-78 U/L Alkaline Phosphatase 336 H 50-136 U/L C-Reactive Protein, Quantitative 5.60 H 0.5-3.0 mg/L Total Protein 7.6 6.0-8.3 g/dL Albumin 3.2 L 3.5-5.0 g/dL ASSESSMENT: Suspect chest wall abscess. Leukocytosis POA, resolving. Diabetes mellitus. End-stage renal disease, on dialysis. PLAN: Discontinue aztreonam. Start Meropenem1 g IV Q 24 hours. Continue GI prophylaxis. Continue pain management. Continue dialysis per Nephrology recommendations. We will follow up on final cultures results. Case management evaluation for referral to [facility] for outpatient IV antibiotics times 14 days. Pres[address] was written. Place midline. This case was reviewed and discussed with my supervising physician Dr. Maria and the above assessment and plan was formulated and agreed upon. ATTESTATION BY PHYSICIAN I have seen and examined the patient. I reviewed the documentation, medical decision making, and treatment plan as noted by the mid-level provider above. I agree with the findings and plan of care. PRISCILLA MARIA MD, MIRTA L [facility] Jul 29, 2025 20:03
[2025-07-30] VITALS (21 sets, daily range): BP systolic 104–172; BP diastolic 66–99; PULSE 79–89; RESP 16–20; TEMP 97.5–98.5; O2SAT 94
[2025-07-30 05:16] LABS: IMMATURE GRANULOCYTE ABSOLUTE 0.09 K/uL (0-1); NUCLEATED RED BLOOD CELLS 0.0 % (0.0-0.19); PLATELET COUNT (AUTO) 471 K/uL (130-400); RED BLOOD CELL COUNT(AUTO) 3.62 MIL/uL (4.00-5.50); RED CELL DISTRIBUTION WIDTH 18.1 % (11.0-15.5); WHITE BLOOD COUNT (AUTO) 12.6 K/uL (4.8-10.8)
[2025-07-30 05:34] LABS: ASPARTATE AMINOTRANSFERASE 13.0 U/L (10-37); CREATININE 7.2 mg/dL (0.5-1.0); GLOMERULAR FILTR. RATE CALC 6.0 mL/min (>90); GLUCOSE,RANDOM 207.0 mg/dL (70-105); SODIUM SERUM 131.0 mmol/L (136-145); TOTAL PROTEIN, SERUM 7.4 g/dL (6.0-8.3); UREA NITROGEN, BLOOD 69.0 mg/dL (7-18)
--- NOTE | 2025-07-30 15:24 | DS ---
Discharge Summary Hospital Course Summary: The patient presented with swelling and tenderness over her prior sternotomy incision. CT chest without contrast demonstrated failure of sternal fixation with wide sternal diastasis and a large intersternal fluid collection (4.2 4.3 12.3 cm), concerning for a postoperative chest wall collection, with sup erimposed infection not excluded. Additional findings included a small loculated left pleural empyema and cardiomegaly. Follow-up chest ultrasound confirmed localized fluid collections within the sternal gap, none appearing amenable to drainage. Cardiothoracic Surgery evaluated the patient and recommended no acute surgical intervention, advising outpatient follow-up with Plastic Surgery for further management of the sternal defect and fluid collection. Infectious Disease recommended IV antimicrobial therapy. The patient was initially treated with aztreonam and later transitioned to IV meropenem, with plans for outpatient IV antibiotic completion. Blood and wound cultures remained negative. The patient remained afebrile and hemodynamically stable throughout hospitalization. Chest pain and incisional tenderness resolved. Blood pressures were intermittently elevated and managed medically. She continued scheduled hemodialysis without complication. Anemia was managed with IV iron and erythropoietin during dialysis. No evidence of systemic sepsis developed. Given clinical stability, resolution of pain, and specialist recommendations, the patient was deemed appropriate for discharge with outpatient IV antibiotics and close follow-up. Pipe Changer(s): Cardiothoracic surgery ASSESSMENT AND PLAN: The patient is status post coronary artery bypass grafting in 02/2025, now with chest wall abscess, status post debridement and now with muscle flap. We reviewed the CT scan of the chest. I do not appreciate any abscess cavity or any active infection of the CT scan of the chest. I will refer her back to her plastic surgeon as an outpatient in [place]. She does not need to be in the hospital at this time. I do not see the need for any antibiotics as I cannot appreciate any infection. Her plastic surgeon will see her as an outpatient at this time. Infectious diseases: ASSESSMENT: Suspect chest wall abscess. Leukocytosis POA, resolving. Diabetes mellitus. End-stage renal disease, on dialysis. PLAN: Discontinue aztreonam. Start Meropenem1 g IV Q 24 hours. Continue GI prophylaxis. Continue pain management. Continue dialysis per Nephrology recommendations. We will follow up on final cultures results. Case management evaluation for referral to [facility] for outpatient IV antibiotics times 14 days[address] Place midline. Procedure(s): [facility] [address] [place] [address] IMAGING REPORT Signed PATIENT: LEXIS CAMARILLO MR#: [id number] : 1970 SEX: F AGE: 55 LOCATION: [facility] ORDER 1610 STATUS: REG REPORT#: [id number] SERVICE 1608 REASON: r/o abscess ORDERING PHYSICIAN: MALISSA IBRAHIM PROCEDURE: CHEST WO - CT CHEST W/O CONTRAST STUDY CT chest without intravenous contrast. HISTORY Rule out abscess. TECHNIQUE Axial CT images of the chest were obtained without intravenous contrast. COMPARISON Chest radiograph dated 01/14/2025. FINDINGS LUNGS Both lungs demonstrate heterogeneous attenuation with a mosaic perfusion pattern. There is associated compressive atelectasis adjacent to a loculated left pleural collection. No discrete pulmonary mass is identified. No yifan cavitary lesion is seen. PLEURAL SPACES A loculated left pleural empyema is present, tracking along the left hemithorax with a maximal thickness of approximately 2.7 cm, exerting mass effect on the adjacent lung with subpleural scarring and compressive atelectasis. No right-sided pleural effusion or pneumothorax is identified. HEART AND GREAT VESSELS Marked cardiomegaly is present. The main pulmonary artery is enlarged, measuring approximately 3.2 cm in diameter, compatible with pulmonary arterial hypertension in the appropriate clinical context. No sizable pericardial effusion is identified on this noncontrast examination. MEDIASTINUM AND LYMPH NODES No pathologically enlarged mediastinal, hilar, or axillary lymph nodes are identified by size criteria. Mediastinal fat planes are preserved. CHEST WALL AND POSTSURGICAL CHANGES There is failure of sternal fixation with rupture of sternal sutures and wide diastasis of the sternal halves. A large intersternal fluid collection occupies the gap between the sternal margins, measuring approximately 4.2 4.3 12.3 cm, compatible with a postoperative intersternal collection, with superinfection not excluded on imaging alone. Omental flap transposition from the epigastrium into the sternal defect is visualized, consistent with prior surgical reconstruction. No definite gas locules are seen within the collection on this noncontrast study. UPPER ABDOMEN The visualized liver is enlarged, measuring approximately 18 cm in craniocaudal extent, compatible with hepatomegaly. Diffuse low attenuation of the hepatic parenchyma is in keeping with hepatic steatosis. The remaining visualized upper abdominal structures are unremarkable on this chest CT technique. BONES Apart from the described sternal dehiscence, no acute displaced rib fracture or aggressive osseous lesion is identified. IMPRESSION * Loculated left pleural empyema measuring up to approximately 2.7 cm in thickness with associated subpleural scarring and compressive atelectasis of adjacent lung parenchyma. * Marked cardiomegaly with enlarged main pulmonary artery measuring 3.2 cm, compatible with pulmonary arterial hypertension in the appropriate clinical setting. * Postoperative sternotomy with failure of sternal fixation and wide diastasis of the sternal halves, with a large intersternal fluid collection measuring approximately 4.2 4.3 12.3 cm occupying the sternal gap; omental flap transposition into the defect is noted, in keeping with prior reconstructive surgery. Imaging appearance is concerning for postoperative intersternal collection; superimposed infection cannot be excluded on this noncontrast study. * Hepatomegaly with diffuse hepatic steatosis in the visualized upper abdomen. /Winfred DICTATED BY: ANGELO SPICER MD DATE: 07/25/251854 ELECTRONICALLY SIGNED BY: ANGELO SPICER MD DATE: 07/25/251854 [place] [address] IMAGING REPORT Signed PATIENT: LEXIS CAMARILLO MR#: [id number] : 1970 SEX: F AGE: 55 LOCATION: [facility] ORDER 07 STATUS: ADM IN REPORT#: [id number] SERVICE 03 REASON: chest wall abscess ORDERING PHYSICIAN: CHRISTIE HOOKER CT MANAGER PROCEDURE: SOFT CHEST - US SOFT TISSUE CHEST WALL *:first-child]:mt-0"> STUDY US Soft Tissue Chest Wall CLINICAL HISTORY Chest wall swelling with concern for abscess in a patient with prior sternotomy and known loculated left pleural empyema and sternal gap fluid collection on CT TECHNIQUE Real-time ultrasound of the anterior chest wall centered over the midline sternotomy region COMPARISON Prior CT chest report describing loculated left pleural empyema approximately 2.7 cm in thickness and a large interstitial fluid collection in the sternal gap measuring approximately 4.2 x 4.2 x 12.3 cm FINDINGS Targeted ultrasound of the midline anterior chest wall over the sternotomy site demonstrates fluid collections located between the sternal halves within the sternal gap. The larger discrete loculated collection measures approximately 1.7 x 1.6 x 2.2 cm and an additional adjacent collection measures approximately 1.9 x 0.7 x 2.1 cm. These collections are predominantly anechoic to hypoechoic with features compatible with localized fluid rather than solid tissue, in keeping with the previously described sternal gap fluid on CT. There is associated soft tissue edema and thickening overlying the incision site along the midline anterior chest wall. No definite intrapleural extension is visualized on this limited chest wall study. No separate superficial subcutaneous drainable fluid pocket distinct from the sternal gap collections is identified. IMPRESSION * Localized fluid collections within the sternal gap between the sternal halves at the midline anterior chest wall, measuring approximately 1.7 x 1.6 x 2.2 cm and 1.9 x 0.7 x 2.1 cm, corresponding to and smaller than the previously reported larger interstitial fluid collection in the sternal gap on CT, and compatible with postoperative fluid or organizing collection in the context of suspected chest wall infection. * Overlying soft tissue edema along the sternotomy incision without a clearly separate superficial drainable abscess pocket identified on this targeted ultrasound. * No pleural or pericardial effusion demonstrated on this chest wall ultrasound study. /Winfred DICTATED BY: BECCA ROTHMAN Jr., MD DATE: 07/26/25708 ELECTRONICALLY SIGNED BY: BECCA ROTHMAN Jr., MD DATE: 07/26/25[address] [address] IMAGING REPORT Signed PATIENT: LEXIS CAMARILLO MR#: [id number] : 1970 SEX: F AGE: 55 LOCATION: [facility] ORDER 4 STATUS: ADM IN REPORT#: [id number] SERVICE REASON: Chest discomfort ORDERING PHYSICIAN: LISA KRAFT MD PROCEDURE: CXR1VW - CHEST 1VW EXAM CR CHEST, 1 VIEW CLINICAL HISTORY Chest discomfort TECHNIQUE Single frontal chest radiograph COMPARISON US soft tissue chest wall 07/25/2025 at 21:10 EST; CT chest without contrast 07/25/2025 at 16:28 EST; chest radiograph 01/14/2025 at 13:50 EDT FINDINGS LUNGS There is left basilar volume loss with silhouetting of the left hemidiaphragm and mild increased opacity, consistent with left basal atelectasis. Mild prominence of central pulmonary vascular markings is present, compatible with mild pulmonary vascular congestion. No focal mass or pneumothorax is seen. PLEURAL SPACES A small left pleural effusion is present. No right pleural effusion is identified. MEDIASTINUM AND HEART Cardiac size is within the upper limits of normal. Mediastinal contours are stable compared with prior imaging. CARDIAC DEVICES A leadless cardiac pacemaker projects over the expected region of the right ventricle, with no radiographic evidence of device-related complication. BONES AND SOFT TISSUES No acute osseous abnormality is identified. Visualized soft tissues are unremarkable. IMPRESSION * Left basilar atelectasis with small left pleural effusion. * Mild pulmonary vascular congestion. * Leadless pacemaker in expected right ventricular location without radiographic evidence of complication. 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 * Follow up chest ultrasound (07/25/2025) demonstrated localized fluid collections within the sternal gap between the sternal halves at the midline anterior chest wall, measuring 1.7 x 1.6 x 2.2 And 1.9 x 0.7 x 2.1 cm. * Wound cultures from previous visit did not grow any organism. * Aerobic and anaerobic cultures will be done from the wound, follow up. * Cardiothoracic surgery and Infectious diseases consulted, we will follow their recommendations. * Cardiothoracic surgery recommended outpatient follow up with Plastic surgery. * Continue Meropenem (Day 1). * We will order CRP and follow up. * Continue to monitor clinically and with serial labs. End-stage renal disease dependent on hemodialysis: * Patient has a end-stage renal disease with hemodialysis scheduled on Saturday. * Nephrology consulted, pending recommendations. * Patient received her dialysis Saturday as scheduled (predialysis creatinine at 6.3). * I&O: -8000 ml (HD fluid) yesterday. Anemia, POA: * Patient's hemoglobin on admission at 9.7, and 9.5 today. * Suspected due to history of end-stage renal disease. * Iron panel revealed a serum iron of 31, TIBC of 174, transferrin saturation of 17.8 And the patient was started on IV Venofer. * Continue erythropoietin with dialysis. * Transfuse 1 unit PRBC if Hb less than 7. Hypertension, hyperlipidemia, and diabetes mellitus type 2: * Resume home medications for hypertension, and hyperlipidemia. * Patient placed on an insulin sliding scale. * Continue to monitor DVT prophylaxis with Eliquis 5 mg b.i.d.. GI prophylaxis with Pepcid 20 mg Discharge Instructions: Chest Wall Infection You have a fluid collection near your chest surgery site It does not need drainage right now You will continue IV antibiotics (meropenem) as an outpatient Follow up with Plastic Surgery as scheduled Medications Take all medications exactly as prescribed Do not stop antibiotics early Continue your blood pressure, diabetes, and cholesterol medications Continue Eliquis as instructed Dialysis Continue hemodialysis Saturday / Saturday / Saturday Do not miss treatments Activity Avoid heavy lifting or pressure on your chest Report any new swelling, redness, drainage, or pain at the incision site When to Seek Immediate Care Go to the ER if you develop: Fever or chills Worsening chest pain or swelling Drainage or redness from the chest incision Shortness of breath Dizziness or weakness Follow-Up Appointments Infectious Disease for antibiotic management Plastic Surgery for chest wall evaluation Nephrology / Dialysis Center as scheduled Primary Care Physician within 1 week Home Medications: Reported Medications Clopidogrel Bisulfate (Clopidogrel) 75 Mg Tablet, 1 TAB PO DAILY for 30 Days, #30 TAB 0 Refills 07/25/25 Aspirin (Aspirin) 81 Mg Tab.chew, 1 TAB PO DAILY for 30 Days, #30 TAB 0 Refills 07/25/25 Atorvastatin Calcium (LIPITOR) 40 Mg Tablet, 1 TAB PO HS for 30 Days, #30 TAB 0 Refills 07/25/25 Gabapentin (Gabapentin) 100 Mg Capsule, 100 MG PO TID for every other day after dialysis, CAP 07/25/25 Metoclopramide HCl (Metoclopramide HCl) 5 Mg Tablet, 1 TAB PO TID for 30 Days, #90 TAB 0 Refills 07/25/25 Apixaban (Eliquis) 5 Mg Tablet, 1 TAB PO BID for 30 Days, #60 TAB 0 Refills 07/25/25 Nifedipine (Nifedipine ER) 30 Mg Tab.er.24, 1 TAB PO DAILY for 30 Days, #30 TAB 0 Refills 07/25/25 Metoprolol Tartrate (Metoprolol Tartrate) 25 Mg Tablet, 0.5 TAB PO BID for 30 Days, #60 TAB 0 Refills 07/25/25 Omeprazole (Omeprazole) 20 Mg Tab.rap.dr, 1 TAB PO DAILY for 30 Days, #30 TAB 0 Refills 01/14/25 Folic Acid/Vitamin B Comp W-C (Ana-Mike Tablet) 0.8 Mg Tablet, 1 TAB PO DAILY for 30 Days, #30 TAB 0 Refills 01/14/25 Continued Medications: Apixaban (Eliquis) 5 Mg Tablet 1 TAB PO BID for 30 Days, #60 TAB 0 Refills Aspirin (Aspirin) 81 Mg Tab.chew 1 TAB PO DAILY for 30 Days, #30 TAB 0 Refills Atorvastatin Calcium (Lipitor) 40 Mg Tablet 1 TAB PO HS for 30 Days, #30 TAB 0 Refills Clopidogrel Bisulfate (Clopidogrel) 75 Mg Tablet 1 TAB PO DAILY for 30 Days, #30 TAB 0 Refills Folic Acid/Vitamin B Comp W-C (Ana-Mike Tablet) 0.8 Mg Tablet 1 TAB PO DAILY for 30 Days, #30 TAB 0 Refills Gabapentin (Gabapentin) 100 Mg Capsule 100 MG PO TID for every other day after dialysis, CAP Metoclopramide HCl (Metoclopramide HCl) 5 Mg Tablet 1 TAB PO TID for 30 Days, #90 TAB 0 Refills Metoprolol Tartrate (Metoprolol Tartrate) 25 Mg Tablet 0.5 TAB PO BID for 30 Days, #60 TAB 0 Refills Nifedipine (Nifedipine ER) 30 Mg Tab.er.24 1 TAB PO DAILY for 30 Days, #30 TAB 0 Refills Omeprazole (Omeprazole) 20 Mg Tab.rap.dr 1 TAB PO DAILY for 30 Days, #30 TAB 0 Refills Time spent arranging discharge: 1-30 minutes ATTESTATION BY PHYSICIAN I have seen and examined the patient. I reviewed the documentation, medical decision making, and treatment plan as noted by the resident physician above. I agree with the findings and plan of care. DEEPALI SU MD, HEMA MD Jul 30, 2025 15:24
--- NOTE | 2025-07-30 15:38 | NUR ---
ADVISED PATIENT THAT SHE WAS ACCEPTED AT [facility] TO START TOMORROW AT 10 AM
--- NOTE | 2025-07-30 17:51 | NUR ---
DISCHARGED PATIENT DISCHARGED HOME WITH FAMILY. PATIENT WILL CONTINUE ANTIBIOTIC TREATMENT AT [facility]. PATIENT WILL FOLLOW MD RECOMMENDATIONS, AND TAKE MEDICATIONS PRESCRIBED.
--- NOTE | 2025-07-30 21:30 | PN ---
DIALYSIS NOTE SUBJECTIVE: The patient is seen and evaluated at hemodialysis. Prescription noted. OBJECTIVE: VITAL SIGNS: Blood pressure is 149/77. CARDIOVASCULAR: Regular. LUNGS: Coarse. IMPRESSION: The patient with end-stage renal disease. PLAN: The patient will continue with maximal ultrafiltration blood pressure allows. The patient being set up for outpatient antibiotics. Once the patient is discharged, she can follow up in the Dialysis unit. TID: [id number] RECEIPT: [id number]
== END 2025-07-30 17:30 | disposition home or self-care (01) | DRG 862 ==
LOC: EDH 15:36 → EDHIP 20:08 → 3DH 07-26 15:50
PROVIDERS: ADMIT Internal Medicine; ATTEND Internal Medicine
PROC: 5A1D70Z Performance of Urinary Filtration, Intermittent, Less than 6 Hours Per Day (ICD-10-PCS; principal; 2025-07-26)
PROC: 5A1D70Z Performance of Urinary Filtration, Intermittent, Less than 6 Hours Per Day (ICD-10-PCS; 2025-07-28)
PROC: 5A1D70Z Performance of Urinary Filtration, Intermittent, Less than 6 Hours Per Day (ICD-10-PCS; 2025-07-30)
DX: T81.41XA Infection following a procedure, superficial incisional surgical site, initial encounter (principal); J86.9 Pyothorax without fistula; N18.6 End stage renal disease; I12.0 Hypertensive chronic kidney disease with stage 5 chronic kidney disease or end stage renal disease; I27.21 Secondary pulmonary arterial hypertension; E87.1 Hypo-osmolality and hyponatremia; D63.1 Anemia in chronic kidney disease; L02.213 Cutaneous abscess of chest wall; Z99.2 Dependence on renal dialysis; E11.22 Type 2 diabetes mellitus with diabetic chronic kidney disease; E66.9 Obesity, unspecified; K76.0 Fatty (change of) liver, not elsewhere classified; J98.11 Atelectasis; E78.00 Pure hypercholesterolemia, unspecified; E11.65 Type 2 diabetes mellitus with hyperglycemia; E87.8 Other disorders of electrolyte and fluid balance, not elsewhere classified; I25.10 Atherosclerotic heart disease of native coronary artery without angina pectoris; Z82.49 Family history of ischemic heart disease and other diseases of the circulatory system; Z83.3 Family history of diabetes mellitus; Z95.1 Presence of aortocoronary bypass graft; Z90.710 Acquired absence of both cervix and uterus; Z68.30 Body mass index [BMI] 30.0-30.9, adult; Y92.89 Other specified places as the place of occurrence of the external cause
CPT/HCPCS: 36415; 71045; 71250; 76604; 80048; 80053; 82948; 83036; 83540; 83550; 83605; 83735; 84100; 84484; 85025; 86140; 86704; 86706; 86803; 87040; 87340; 90935; 93005; 99285; G0378; J0360; J1756; J1815; J2185; J2405; J3490; J7050; Q5106